=== PATIENT | female | born 1970 | race American Indian/Alaskan Native ===

== ENCOUNTER 2017-01-23 13:31 | Emergency (ER) | payer BC ==
[2017-01-23 13:58] VITALS: TEMP 99.9
--- NOTE | 2017-01-23 14:52 | ED PDOC ---
Arrival/HPI - General Chief Complaint: Lower Extremity Problem/Injury Time Seen by Provider: 01/23/17 14:25 Historian: Patient - History of Present Illness Narrative History of Present Illness (Text): 01/23/17 14:56 A 46 year old female, whose past medical history includes Hypertension, presents to the emergency department complaining of gradual onset of bilateral medial thigh pain since last night. Patient reports heavy lifting at work. Denies any systemic symptoms, symptoms of infectious foci. Patient has been in usual state of health for the past 2 weeks. Patient denies any chest pain, dyspnea on exertion, shortness of breath or any other complaints at this time. Time/Duration: Other (last night) Symptom Onset: Sudden Symptom Course: Unchanged Activities at Onset: Light Past Medical History - Provider Review Nursing Documentation Reviewed: Yes - Infectious Disease Hx of Infectious Diseases: None - Cardiac Hx Hypertension: Yes - Pulmonary Hx Respiratory Disorders: No - Neurological Hx Neurological Disorder: No - HEENT Hx HEENT Disorder: No - Renal Hx Renal Disorder: No - Endocrine/Metabolic Hx Endocrine Disorders: No - Hematological/Oncological Hx Blood Disorders: No - Integumentary Hx Dermatological Disorder: No - Musculoskeletal/Rheumatological Hx Musculoskeletal Disorders: No - Gastrointestinal Hx Gastrointestinal Disorders: No - Genitourinary/Gynecological Hx Genitourinary Disorders: No - Psychiatric Hx Psychophysiologic Disorder: No Hx Substance Use: No - Surgical History Hx Section: Yes - Anesthesia Hx Anesthesia: Yes Hx Anesthesia Reactions: No Hx Malignant Hyperthermia: No Family/Social History - Physician Review Nursing Documentation Reviewed: Yes Family/Social History: No Known Family HX Smoking Status: Never Smoked Hx Alcohol Use: No Hx Substance Use: No Allergies/Home Meds Allergies/Adverse Reactions: Allergies No Known Allergies Allergy (Verified 01/23/17 13:57) Home Medications: Home Meds Medication Instructions Recorded Confirmed Metoprolol Tartrate [Lopressor] 50 mg PO DAILY 12/07/14 01/23/17 Review of Systems - Physician Review All systems were reviewed & negative as marked: Yes - Review of Systems Respiratory: absent: SOB Cardiovascular: absent: Chest Pain, ZIMMER Musculoskeletal: Other (bilateral medial thigh pain) Physical Exam Vital Signs Reviewed: Yes Vital Signs Temp Pulse Resp BP Pulse Ox 01/23/17 13:52 99.9 F H 90 20 194/105 H 100 Temperature: Afebrile Blood Pressure: Hypertensive Pulse: Regular Respiratory Rate: Normal Appearance: Positive for: Well-Appearing, Non-Toxic, Comfortable Pain Distress: None Mental Status: Positive for: Alert and Oriented X 3 - Systems Exam Head: Present: Atraumatic, Normocephalic Pupils: Present: PERRL Extroacular Muscles: Present: EOMI Conjunctiva: Present: Normal Mouth: Present: Moist Mucous Membranes Neck: Present: Normal Range of Motion Respiratory/Chest: Present: Clear to Auscultation, Good Air Exchange. No: Respiratory Distress, Accessory Muscle Use Cardiovascular: Present: Regular Rate and Rhythm, Normal S1, S2. No: Murmurs Abdomen: Present: Normal Bowel Sounds. No: Tenderness, Distention, Peritoneal Signs Genitourinary/Pelvic Exam: Present: Other (7 month gradual size uterine fibroids ) Back: Present: Normal Inspection Upper Extremity: Present: Normal Inspection. No: Cyanosis, Edema Lower Extremity: Present: Other (b/l tenderness adductor tendons, 2+ pulses). No: Edema Neurological: Present: GCS=15, CN II-XII Intact, Speech Normal Skin: Present: Warm, Dry, Normal Color. No: Rashes Psychiatric: Present: Alert, Oriented x 3, Normal Insight, Normal Concentration Medical Decision Making ED Course and Treatment: 01/23/17 14:49 Impression: A 46 year old female with bilateral medial thigh pain. Plan: -- EKG -- labs -- US lower extremity -- US aorta, IVC, iliac -- Urinalysis -- Reassess and disposition Prior Visits: Notes and results from previous visits were reviewed. Patient last reported to the emergency department on 12/07/14 for evaluation of right knee swelling and pain. Progress Notes: 01/23/17 15:23 EKG: Ordered, reviewed, and independently interpreted the EKG. Rate : 80 BPM Rhythm : NSR Interpretation : No ischemic ST/T segments, no arrhythmogenic intervals 01/23/17 19:05 Deep vein studies (-) for any evbidence of dvt. Pt pain cloesly contiguous to the adductor tendons along their full length, and very reproduceable and is likely due to adducor tendinitis, ua (-) for infection or myolobunuria. Pt will be discharged on nsaids and muscel relaxants , advissed stretching exercises and pmd f/u prn. - Lab Interpretations Lab Results: 01/23/17 15:00 12/03/17 15:00 Lab Results 01/23/17 15:00: PT 13.3 H, INR 1.22 H, APTT 29.9 01/23/17 15:00: Sodium 139, Potassium 4.0, Chloride 104, Carbon Dioxide 28, Anion Gap 12, BUN 11, Creatinine 0.7, Est GFR ( Amer) > 60, Est GFR (Non- Af Amer) > 60, Random Glucose 94, Calcium 8.6, Total Bilirubin 0.6, AST 21, ALT 25, Alkaline Phosphatase 50, Total Protein 7.2, Albumin 3.9, Globulin 3.2, Albumin/Globulin Ratio 1.2 01/23/17 15:00: WBC 7.2, RBC 4.13, Hgb 8.1 L, Hct 29.2 L, MCV 70.7 L, MCH 19.6 L , MCHC 27.7 L, RDW 18.2 H, Plt Count 322, MPV 10.1, Gran % 82.5 H, Lymph % (Auto ) 10.2 L, [place] % (Auto) 5.5, Eos % (Auto) 1.5, Baso % (Auto) 0.3, Gran # 5.95, Lymph # 0.7 L, [place] # 0.4, Eos # 0.1, Baso # 0.02 01/23/17 14:45: Urine Color Yellow, Urine Appearance Sl cloudy, Urine pH 6.0, Ur Specific [place] 1.020, Urine Protein Trace H, Urine Glucose (UA) Negative, Urine Ketones Negative, Urine Blood Trace-lysed H, Urine Nitrate Negative, Urine Bilirubin Negative, Urine Urobilinogen 0.2, Ur Leukocyte Esterase Negative , Urine RBC 0 - 2, Urine WBC 0 - 2, Ur Epithelial Cells 1 - 3 I have reviewed the lab results: Yes - RAD Interpretation Radiology Orders: 01/23/17 14:40 DUPLEX LOWER EXTRM VEIN BILAT [US] Stat 01/23/17 14:43 AORTA, IVC, ILIAC DUPLEX [US] Stat - EKG Interpretation Interpreted by ED Physician: Yes Type: 12 lead EKG - Medication Orders Current Medication Orders: Cyclobenzaprine HCl (Flexeril) 10 mg PO STAT STA Stop: 01/23/17 19:00 Discontinued Medications Ibuprofen (Motrin Tab) 800 mg PO STAT STA Stop: 01/23/17 16:10 Last Admin: 01/23/17 16:22 Dose: 800 mg Metoprolol Tartrate (Lopressor) 50 mg PO STAT STA Stop: 01/23/17 16:50 - Scribe Statement The provider has reviewed the documentation as recorded by the Scribe Lenard Dang All medical record entries made by the Scribe were at my direction and personally dictated by me. I have reviewed the chart and agree that the record accurately reflects my personal performance of the history, physical exam, medical decision making, and the department course for this patient. I have also personally directed, reviewed, and agree with the discharge instructions and disposition. Disposition/Present on Arrival - Present on Arrival Any Indicators Present on Arrival: No History of DVT/PE: No History of Uncontrolled Diabetes: No Urinary Catheter: No History of Decub. Ulcer: No History Surgical Site Infection Following: None - Disposition Have Diagnosis and Disposition been Completed?: Yes Diagnosis: Adductor tendinitis Disposition: HOME/ ROUTINE Disposition Time: 19:08 Patient Plan: Discharge Condition: GOOD Discharge Instructions (ExitCare): Tendinitis (ED) Print Language: ALGERIAN Additional Instructions: Please practice doing gentle splits to stretch the addictor tendons after takingthe rpescribed medication, egntle massage after hot compresses can apso help. Please follow up with your cardiac surgeon doctor regarding elective hysterectomy as it may predispose you to heavy vaginal bleeding/ deep vein b;lood clots as well as possible malignant cancerous conversion. Return if symptoms worsen and are not steadily improving . Prescriptions: Cyclobenzaprine HCl 10 mg PO Q8 PRN #20 tablet PRN Reason: Muscle Spasm Ibuprofen [Motrin Tab] 600 mg PO Q6 PRN #50 tab PRN Reason: Pain, Mild (1-3) Referrals: [facility] Rubi Chaudhry, [Primary Care Provider] - Follow up with primary Forms: [employer] (Kinyarwanda)
[2017-01-23 15:00] LABS: URINE BILIRUBIN NEGATIVE (NEGATIVE); URINE BLOOD TRACE-LYSED (NEGATIVE); URINE GLUCOSE (UA) NEGATIVE (NEGATIVE); URINE KETONE NEGATIVE (NEGATIVE); URINE LEUKOCYTE ESTERASE NEGATIVE Leu/uL (NEGATIVE); URINE PROTEIN TRACE mg/dL (<30 mg/dL); URINE UROBILINOGEN 0.2 E.U./dL (<1 E.U./dL)
[2017-01-23 15:01] LABS: URINE APPEARANCE SL CLOUDY (CLEAR); URINE COLOR YELLOW (YELLOW)
[2017-01-23 15:04] LABS: URINE RBC 0 - 2 /hpf (0-2)
[2017-01-23 15:05] LABS: URINE WBC 0 - 2 /hpf (0-6)
[2017-01-23 15:24] LABS: BASO # 0.02 K/mm3 (0.0-2.0); BASO % 0.3 % (0.0-3.0); EOS # 0.1 (0.0-0.7); EOS % 1.5 % (1.5-5.0); GRAN # 5.95 (1.4-6.5); GRAN % 82.5 % (50.0-68.0); HEMATOCRIT 29.2 % (36.0-48.0); LYMPH # 0.7 (1.2-3.4); LYMPH % 10.2 % (22.0-35.0); MEAN CELL VOLUME 70.7 fl (80.0-105.0); MEAN CORPUSCULAR HEMOGLOBIN 19.6 pg (25.0-35.0); MEAN CORPUSCULAR HGB CONC 27.7 g/dl (31.0-37.0); MEAN PLATELET VOLUME 10.1 fl (7.0-11.0); MONO # 0.4 (0.1-0.6); MONO % 5.5 % (1.0-6.0); RED CELL DISTRIBUTION WIDTH 18.2 % (11.5-14.5); WHITE BLOOD COUNT 7.2 10^3/ul (4.5-11.0)
[2017-01-23 15:34] LABS: INR 1.22 (0.93-1.08); PARTIAL THROMBOPLASTIN TIME 29.9 Seconds (25.1-36.5)
[2017-01-23 15:44] LABS: ALB/GLOB RATIO 1.2 (1.1-1.8); ALKALINE PHOSPHATASE 50 U/L (38-126); ALT/SGPT 25 U/L (7-56); AST/SGOT 21 U/L (14-36); BILIRUBIN,TOTAL 0.6 mg/dL (0.2-1.3); BLOOD UREA NITROGEN 11 mg/dL (7-21); CALCIUM 8.6 mg/dL (8.4-10.5); CARBON DIOXIDE 28 mmol/L (21-33); CHLORIDE 104 mmol/L (98-107); GFR AFRICAN-AMERICAN > 60; GLUCOSE,RANDOM 94 mg/dL (70-110); SODIUM 139 mmol/L (132-148); TOTAL PROTEIN 7.2 g/dL (5.8-8.3)
[2017-01-23] MEDS ORDERED: Oxycodone/Acetaminophen 5/325 mg Tab PO STA (19:04)
[2017-01-23 20:20] VITALS: BP 162/99; PULSE 82; RESP 16
[2017-01-23 20:28] VITALS: O2SAT 99
--- NOTE | 2017-01-24 09:14 | US ---
HISTORY: Leg pain and swelling. Evaluate for DVT PHYSICIAN(S): Ye Bañuelos MD. TECHNIQUE: Duplex sonography and color-flow Doppler with graded compression were used to evaluate the deep venous systems of both lower extremities. FINDINGS: The visualized deep venous systems of both lower extremities are sonographically normal and compressible. Normal wave forms and augmentation are seen. There is no sonographic evidence for deep venous thrombosis in the visualized segments of both lower extremities. IMPRESSION: No sonographic evidence for deep venous thrombosis in the visualized segments of both lower extremities.
--- NOTE | 2017-01-24 09:14 | US ---
PROCEDURE: 1. Duplex ultrasound of the abdominal aorta. HISTORY: Abdominal aortic aneurysm. PHYSICIAN(S): Ye Bañuelos MD. FINDINGS: The exam is extremely limited due to bowel gas and enlarged fibroid. Only the proximal abdominal aorta is visualized. There is no sonographic evidence for abdominal aortic aneurysm in the visualized segments of the proximal abdominal aorta. The mid to distal abdominal aorta are not adequately visualized. IMPRESSION: 1. No sonographic evidence of abdominal aortic aneurysm. 2. Only limited segments of the proximal abdominal aorta were adequately visualized. Very limited study
--- NOTE | 2017-01-24 17:49 | CARD ---
APPROVED REPORT EKG Measurement Heart [id number] <Conclusion> Normal sinus rhythm Minimal voltage criteria for LVH, may be normal variant Cannot rule out Anterior infarct, age undetermined Abnormal ECG
== END 2017-01-23 20:20 | disposition home or self-care (01) ==
LOC: ED 13:31
DX: M76.892 Other specified enthesopathies of left lower limb, excluding foot (principal); M76.891 Other specified enthesopathies of right lower limb, excluding foot; I10 Essential (primary) hypertension

== ENCOUNTER 2017-01-26 13:52 | Inpatient (IN) | payer BC ==
[2017-01-26 14:14] VITALS: BMI 29.8
[2017-01-26] MEDS ORDERED: Sodium Chloride 0.9% 1,000 ML IV STA (14:36)
--- NOTE | 2017-01-26 14:41 | ED PDOC ---
Arrival/HPI - General Chief Complaint: Lower Extremity Problem/Injury Time Seen by Provider: 01/26/17 14:08 Historian: Patient - History of Present Illness Narrative History of Present Illness (Text): 01/26/17 14:25 A 46 year old female, whose past medical history includes hypertension, is brought in by EMS and presents to the emergency department complaining of difficulty ambulating. Patient reports experiencing upper leg pain. Patient denies any trauma, fever, or any other complaints. PMD: Dr. Cuate Craft Past Medical History - Provider Review Nursing Documentation Reviewed: Yes - Infectious Disease Hx of Infectious Diseases: None - Cardiac Hx Cardiac Disorders: Yes Hx Hypertension: Yes - Pulmonary Hx Respiratory Disorders: No - Neurological Hx Neurological Disorder: No - HEENT Hx HEENT Disorder: No - Renal Hx Renal Disorder: No - Endocrine/Metabolic Hx Endocrine Disorders: No - Hematological/Oncological Hx Blood Disorders: No - Integumentary Hx Dermatological Disorder: No - Musculoskeletal/Rheumatological Hx Musculoskeletal Disorders: No - Gastrointestinal Hx Gastrointestinal Disorders: No - Genitourinary/Gynecological Hx Genitourinary Disorders: No - Psychiatric Hx Psychophysiologic Disorder: No Hx Substance Use: No - Surgical History Hx Section: Yes - Anesthesia Hx Anesthesia: Yes Hx Anesthesia Reactions: No Hx Malignant Hyperthermia: No Family/Social History - Physician Review Nursing Documentation Reviewed: Yes Family/Social History: No Known Family HX Smoking Status: Never Smoked Hx Alcohol Use: No Hx Substance Use: No Allergies/Home Meds Allergies/Adverse Reactions: Allergies No Known Allergies Allergy (Verified 01/26/17 14:14) Review of Systems - Physician Review All systems were reviewed & negative as marked: Yes - Review of Systems Constitutional: Other (difficulty ambulating due to pain; no trauma). absent: Fevers Musculoskeletal: Other (upper leg pain) Physical Exam Vital Signs Reviewed: Yes Vital Signs Temp Pulse Resp BP Pulse Ox 01/26/17 20:38 78 18 150/93 H 100 01/26/17 17:06 98.6 F 01/26/17 16:27 99.7 F H 92 H 18 148/81 100 01/26/17 16:11 98.6 F 01/26/17 15:11 100.1 F H 01/26/17 14:13 100.7 F H 102 H 18 152/95 H 100 Temperature: Afebrile Blood Pressure: Normal Pulse: Regular Respiratory Rate: Normal Appearance: Positive for: Well-Appearing Pain Distress: None Mental Status: Positive for: Alert and Oriented X 3 - Systems Exam Head: Present: Atraumatic, Normocephalic Pupils: Present: PERRL Extroacular Muscles: Present: EOMI Conjunctiva: Present: Normal Mouth: Present: Moist Mucous Membranes Neck: Present: Normal Range of Motion Respiratory/Chest: Present: Clear to Auscultation, Good Air Exchange. No: Respiratory Distress, Accessory Muscle Use Cardiovascular: Present: Murmurs (systolic ejection murmur) Abdomen: Present: Normal Bowel Sounds. No: Tenderness, Distention, Peritoneal Signs Back: Present: Normal Inspection Upper Extremity: Present: Normal Inspection. No: Cyanosis, Edema Lower Extremity: Present: Tenderness (upper leg) Neurological: Present: GCS=15, CN II-XII Intact, Speech Normal Skin: Present: Warm, Dry, Normal Color. No: Rashes Psychiatric: Present: Alert, Oriented x 3, Normal Insight, Normal Concentration Medical Decision Making ED Course and Treatment: 01/26/17 14:30 Impression: 46 year old female with difficulty ambulating due to upper leg pain. Physical exam shows systolic ejection murmur and upper leg tenderness. Plan: -- EKG -- Labs -- Blood Culture -- Urinalysis -- Serology -- Reassess and disposition Prior Visits: Notes and results from previous visits were reviewed. Patient was last seen in the emergency department on 01/23/2017 for gradual onset of bilateral medial thigh pain. Patient was d/c home. Progress Notes: 01/26/17 18:54 dvt study neg as per tech. - Lab Interpretations Microbiology Results: Microbiology Results 01/26/17 15:25 Blood S.aureus & Coag-Neg Staph PNA FISH - Final 01/26/17 15:25 Blood Blood Culture - Final Streptococcus Sangius I 01/26/17 15:25 Blood Gram Stain - Final 01/26/17 14:55 Blood Blood Culture - Preliminary NO GROWTH AFTER 4 DAYS Lab Results: 01/26/17 14:48 01/26/17 14:48 Lab Results 01/26/17 15:21: D-Dimer, Quantitative 1087 H 01/26/17 15:00: PT 13.9 H, INR 1.27 H, APTT 28.5 01/26/17 14:48: pO2 51, VBG pH 7.44 H, VBG pCO2 36.0 L, VBG HCO3 24.5, VBG Total CO2 25.6, VBG O2 Sat (Calc) 89.7 H, VBG Base Excess 0.6, VBG Potassium 3.3 L, Sodium 138.0, Chloride 105.0, Glucose 96, Lactate 1.0, FiO2 21.0, Venous Blood Potassium 3.3 L 01/26/17 14:48: Influenza Typ A,B (EIA) Negative for flu a/b 01/26/17 14:48: Sodium 139, Chloride 103, Potassium 3.4 L, Carbon Dioxide 24, Anion Gap 15, BUN 13, Creatinine 0.8, Est GFR ( Amer) > 60, Est GFR (Non- Af Amer) > 60, Random Glucose 99, Calcium 9.2, Magnesium 2.2, Total Bilirubin 0.7, AST 28, ALT 25, Alkaline Phosphatase 74, Lactate Dehydrogenase 610, Total Creatine Kinase 51, Troponin I < 0.01, NT-Pro-B Natriuret Pep 551 H, Total Protein 7.7, Albumin 4.1, Globulin 3.7, Albumin/Globulin Ratio 1.1 01/26/17 14:48: WBC 7.4, RBC 4.25, Hgb 8.5 L, Hct 29.6 L, MCV 69.6 L, MCH 20.0 L , MCHC 28.7 L, RDW 18.1 H, Plt Count 296, MPV 9.7, Gran % 89.8 H, Lymph % (Auto ) 5.6 L, [place] % (Auto) 4.5, Eos % (Auto) 0.1 L, Baso % (Auto) 0.0, Gran # 6.62 H , Lymph # 0.4 L, [place] # 0.3, Eos # 0.0, Baso # 0.00, ESR 45 H 01/26/17 14:26: Urine Color Yellow, Urine Appearance Sl cloudy, Urine pH 5.5, Ur Specific [place] 1.025, Urine Protein 100 H, Urine Glucose (UA) Negative, Urine Ketones Negative, Urine Blood Negative, Urine Nitrate Negative, Urine Bilirubin Negative, Urine Urobilinogen 0.2, Ur Leukocyte Esterase Negative, Urine RBC Negative, Urine WBC 5 - 10, Ur Epithelial Cells 6 - 8, Urine Bacteria Mod, WBC Casts 2 - 5 H, Urine HCG, Qual Negative - RAD Interpretation Radiology Orders: 01/26/17 14:44 PELVIS ONE VIEW [RAD] Stat 01/26/17 15:51 CXR [CHEST PORTABLE] [RAD] Stat 01/26/17 17:03 DUPLEX LOWER EXTRM VEIN BILAT [US] Stat 01/26/17 18:15 ANGIO CHEST PE PROTOCOL [CT] Stat 01/26/17 18:16 ABD & PELVIS IV CONTRAST ONLY [CT] Stat - Medication Orders Current Medication Orders: Acetaminophen (Tylenol 325mg Tab) 650 mg PO Q6H PRN PRN Reason: FOR TEMP>=99.5F Acetaminophen (Tylenol 650 Mg Supp) 650 mg RC Q4H PRN PRN Reason: FOR TEMP>=99.5F Amlodipine Besylate (Norvasc) 10 mg PO DAILY [facility]ERARDO Last Admin: 01/31/17 09:54 Dose: 10 mg Clonidine HCl (Catapres) 0.1 mg PO PRN PRN PRN Reason: Diastolic blood pressure Last Admin: 01/30/17 16:25 Dose: 0.1 mg MAR Pulse and Blood Pressure Document 01/30/17 16:25 LMN (Rec: 01/30/17 16:26 LMN [id number]) Pulse Pulse Rate (60-90) 89 Blood Pressure Blood Pressure (100/60-150/90) 179/121 Hydralazine HCl (Apresoline) 10 mg PO Q4H PRN PRN Reason: Diastolic blood pressure Last Admin: 01/31/17 09:54 Dose: 10 mg MAR Pulse and Blood Pressure Document 01/31/17 09:54 LMN (Rec: 01/31/17 09:55 LMN [id number]) Pulse Pulse Rate (60-90) 88 Blood Pressure Blood Pressure (100/60-150/90) 152/92 Hydromorphone HCl (Dilaudid) 0.5 mg IVP Q4H PRN PRN Reason: Pain, moderate (4-7) Iron Sucrose 200 mg/ Sodium (Chloride) 110 mls @ 110 mls/hr IVPB DAILY [facility]ERARDO Stop: 02/01/17 22:01 Last Admin: 01/30/17 11:00 Dose: 110 mls/hr eMAR Start Stop Document 01/30/17 11:00 LMN (Rec: 01/30/17 11:00 [place]N [id number][place] Intravenous Solution Start Date 01/30/17 Start Time 11:00 Ceftriaxone Sodium (Rocephin 1 Gram Ivpb (D5w)) 1 gm in 100 mls @ 100 mls/hr IVPB DAILY [facility] PRN Reason: Protocol Last Admin: 01/31/17 09:33 Dose: 100 mls/hr eMAR Start Stop Document 01/31/17 09:33 LMN (Rec: 01/31/17 09:33 LMN [id number]) Intravenous Solution Start Date 01/31/17 Start Time 09:33 Metoprolol Tartrate (Lopressor) 50 mg PO Q12H [facility] Last Admin: 01/31/17 05:39 Dose: 50 mg MAR Pulse and Blood Pressure Document 01/31/17 05:39 MAD (Rec: 01/31/17 05:40 MAD [id number]) Pulse Pulse Rate (60-90) 86 Blood Pressure Blood Pressure (100/60-150/90) 172/106 Metronidazole (Flagyl) 500 mg PO Q8 [facility] Last Admin: 01/31/17 07:31 Dose: Not Given Non-Admin Reason: Patient Refused Pantoprazole Sodium (Protonix Ec Tab) 40 mg PO 0600,1600 [facility] Last Admin: 01/31/17 07:32 Dose: Not Given Non-Admin Reason: Patient Refused Spironolactone (Aldactone) 25 mg PO BID [facility] Last Admin: 01/31/17 09:31 Dose: 25 mg Tramadol HCl (Ultram) 50 mg PO Q8 [facility] Last Admin: 01/31/17 05:34 Dose: 50 mg MAR Pain Assessment Document 01/31/17 05:34 MAD (Rec: 01/31/17 05:36 MAD [id number][place] Pain Reassessment Is this a pain reassessment? Yes Sleep Is patient sleeping during reassessment? No Presence of Pain Presence of Pain Yes Pain Scale Used Pain Scale Used Numeric Location Upper or Lower Upper Pain Location Body Site Leg Description Intensity of Pain at present 6 Pain Behavior Restlessness Alleviating Factors/Management Medication Techniques Alleviating Factors Medication Effectiveness of Techniques well controlled Pain not relieved and LIP/MD was No notified Valsartan (Diovan) 320 mg PO DAILY [facility] Last Admin: 01/31/17 09:31 Dose: 320 mg Discontinued Medications Acetaminophen (Tylenol 325mg Tab) 975 mg PO STAT STA Stop: 01/26/17 14:53 Last Admin: 01/26/17 15:11 Dose: 975 mg MAR Pain/Vitals Document 01/26/17 15:11 SE (Rec: 01/26/17 15:11 SE [id number]) Pain Reassessment Is This A Pain ReAssessment? No Sleep Is patient sleeping during reassessment? No Presence of Pain Presence of Pain No Vitals Temperature (97.6 F-99.6 F) 100.1 F Temperature Source Oral Re-Assess: MAR Pain/Vitals Document 01/26/17 16:11 RD (Rec: 01/26/17 17:07 RD [id number]) Pain Reassessment Is This A Pain ReAssessment? No Vitals Temperature (97.6 F-99.6 F) 98.6 F Temperature Source Oral Amlodipine Besylate (Norvasc) 5 mg PO DAILY [facility]ERARDO Last Admin: 01/29/17 12:40 Dose: 5 mg [facility] Pulse and Blood Pressure Document 01/29/17 12:40 TX (Rec: 01/29/17 12:40 [place] [id number] Pulse Pulse Rate (60-90) 79 Blood Pressure Blood Pressure (100/60-150/90) 190/109 Diphenhydramine HCl (Benadryl) 50 mg IM ONCE ONE Stop: 01/28/17 14:01 Last Admin: 01/28/17 16:21 Dose: Not Given Non-Admin Reason: Patient Refused Hydralazine HCl (Apresoline) 5 mg IVP STAT STA Stop: 01/27/17 13:02 Last Admin: 01/27/17 13:08 Dose: 5 mg IVP Administration Document 01/27/17 13:08 [facility] (Rec: 01/27/17 13:09 [facility] [id number]) Charges for Administration # of IVP Administrations 1 MAR Pulse and Blood Pressure Document 01/27/17 13:08 BIR (Rec: 01/27/17 13:09 [facility] [id number]) Pulse Pulse Rate (60-90) 76 Blood Pressure Blood Pressure (100/60-150/90) 182/109 Hydralazine HCl (Apresoline) 10 mg IVP Q6 PRN PRN Reason: Systolic Blood Pressure Last Admin: 01/28/17 02:21 Dose: 10 mg IVP Administration Document 01/28/17 02:21 (Rec: 01/28/17 02:22 [id number] Charges for Administration # of IVP Administrations 1 MAR Pulse and Blood Pressure Document 01/28/17 02:21 VM (Rec: 01/28/17 02:22 [id number]) Pulse Pulse Rate (60-90) 81 Blood Pressure Blood Pressure (100/60-150/90) 176/106 Hydralazine HCl (Apresoline) 10 mg IVP Q6 PRN PRN Reason: FOR SBP>=170&/ORDBP>=100 MM[facility] Last Admin: 01/29/17 05:28 Dose: 10 mg IVP Administration Document 01/29/17 05:28 CDL (Rec: 01/29/17 05:29 [id number]) Charges for Administration # of IVP Administrations 1 MAR Pulse and Blood Pressure Document 01/29/17 05:28 CDL (Rec: 01/29/17 05:29 CDL [id number]) Pulse Pulse Rate (60-90) 91 Blood Pressure Blood Pressure (100/60-150/90) 196/110 Hydralazine HCl (Apresoline) 10 mg IVP ONCE ONE Stop: 01/28/17 15:01 Last Admin: 01/28/17 15:05 Dose: 10 mg IVP Administration Document 01/28/17 15:05 [facility] (Rec: 01/28/17 16:48 [id number] Charges for Administration # of IVP Administrations 1 MAR Pulse and Blood Pressure Document 01/28/17 15:05 [facility] (Rec: 01/28/17 16:48 [id number] Pulse Pulse Rate (60-90) 76 Blood Pressure Blood Pressure (100/60-150/90) 188/108 Hydromorphone HCl (Dilaudid) 1 mg IVP ONCE ONE Stop: 01/28/17 08:50 Last Admin: 01/28/17 11:17 Dose: Not Given Non-Admin Reason: Patient Refused Sodium Chloride (Sodium Chloride 0.9%) 1,000 mls @ 999 mls/hr IV .Q1H1M STA Stop: 01/26/17 15:36 Last Admin: 01/26/17 15:11 Dose: 999 mls/hr eMAR Start Stop Document 01/26/17 15:11 SE (Rec: 01/26/17 15:11 SE [id number]) Intravenous Solution Start Date 01/26/17 Start Time 15:11 Ceftriaxone Sodium (Rocephin 2 Gm Ivpb) 2 gm in 100 mls @ 100 mls/hr IVPB STAT STA PRN Reason: Protocol Stop: 01/26/17 17:55 Last Admin: 01/26/17 18:05 Dose: 100 mls/hr eMAR Start Stop Document 01/26/17 18:05 RD (Rec: 01/26/17 18:05 RD [id number]) Intravenous Solution Start Date 01/26/17 Start Time 18:05 End Date 01/26/17 End time 19:05 Total Infusion Time 60 Vancomycin HCl (Vancomycin 1gm) 1 gm in 250 mls @ 167 mls/hr IVPB STAT STA PRN Reason: Protocol Stop: 01/26/17 18:25 Last Admin: 01/26/17 19:46 Dose: 167 mls/hr eMAR Start Stop Document 01/26/17 19:46 RD (Rec: 01/26/17 19:46 RD [id number]) Intravenous Solution Start Date 01/26/17 Start Time 19:46 End Date 01/26/17 End time 21:16 Total Infusion Time 90 Metronidazole (Flagyl) 500 mg in 100 mls @ 100 mls/hr IVPB Q8 [facility] PRN Reason: Protocol Last Admin: 01/28/17 06:00 Dose: 100 mls/hr eMAR Start Stop Document 01/28/17 06:00 VM (Rec: 01/28/17 07:59 VM [id number]) Intravenous Solution Start Date 01/28/17 Start Time 07:59 End Date 01/28/17 End time 08:59 Total Infusion Time 60 Piperacillin Sod/Tazobactam Sod (Zosyn 3.375 In Ns 100ml) 100 mls @ 200 mls/hr IVPB Q6 [facility] PRN Reason: Protocol Stop: 02/02/17 18:01 Last Admin: 01/30/17 14:42 Dose: 200 mls/hr eMAR Start Stop Document 01/30/17 14:42 LMN (Rec: 01/30/17 14:42 LMN [id number]) Intravenous Solution Start Date 01/30/17 Start Time 14:42 Sodium Chloride (Sodium Chloride 0.9%) 1,000 mls @ 100 mls/hr IV .Q10H [facility] Last Admin: 01/26/17 19:46 Dose: 100 mls/hr eMAR Start Stop Document 01/26/17 19:46 RD (Rec: 01/26/17 19:46 RD [id number]) Intravenous Solution Start Date 01/26/17 Start Time 19:46 Sodium Chloride (Sodium Chloride 0.9%) 1,000 mls @ 60 mls/hr IV .[id number] [facility] Last Admin: 01/27/17 09:12 Dose: 60 mls/hr eMAR Start Stop Document 01/27/17 09:12 BIR (Rec: 01/27/17 09:13 BIR [id number]) Intravenous Solution Start Date 01/27/17 Start Time 08:00 Potassium Chloride (Potassium Chloride 20 Meq/100 Ml) 20 meq in 100 mls @ 50 mls/hr IVPB Q2H [facility] Stop: 01/27/17 12:59 Last Admin: 01/27/17 12:00 Dose: 50 mls/hr eMAR Start Stop Document 01/27/17 12:00 BIR (Rec: 01/27/17 13:00 [facility] [id number]) Intravenous Solution Start Date 01/27/17 Start Time 12:00 End Date 01/27/17 End time 13:00 Total Infusion Time 60 Vancomycin HCl (Vancomycin 1gm) 1 gm in 250 mls @ 167 mls/hr IVPB Q12H [facility] PRN Reason: Protocol Last Admin: 01/30/17 12:58 Dose: 167 mls/hr eMAR Start Stop Document 01/30/17 12:58 LMN (Rec: 01/30/17 12:58 LMN [id number]) Intravenous Solution Start Date 01/30/17 Start Time 13:00 Lorazepam (Ativan) 1 mg IM ONCE ONE PRN Reason: Protocol Stop: 01/28/17 14:01 Last Admin: 01/28/17 16:21 Dose: Not Given Non-Admin Reason: Patient Refused Losartan Potassium (Cozaar) 50 mg PO DAILY [facility]ARDO Last Admin: 01/27/17 09:07 Dose: 50 mg MAR Pulse and Blood Pressure Document 01/27/17 09:07 BIR (Rec: 01/27/17 09:12 BIR [id number]) Pulse Pulse Rate (60-90) 83 Blood Pressure Blood Pressure (100/60-150/90) 174/95 Losartan Potassium (Cozaar) 100 mg PO DAILY [facility] Last Admin: 01/29/17 09:17 Dose: Metoprolol Tartrate (Lopressor) 50 mg PO ONCE ONE Stop: 01/27/17 06:01 Last Admin: 01/27/17 06:06 Dose: 50 mg MAR Pulse and Blood Pressure Document 01/27/17 06:06 SRE (Rec: 01/27/17 06:06 SRE [id number]) Pulse Pulse Rate (60-90) 80 Blood Pressure Blood Pressure (100/60-150/90) 180/100 Metoprolol Tartrate (Lopressor) 50 mg PO DAILY [facility] Last Admin: 01/30/17 10:50 Dose: 50 mg Pneumococcal Polyvalent Vaccine (Pneumovax 23 Vaccine) 0.5 ml IM .ONCE ONE Stop: 01/26/17 22:17 Last Admin: 01/27/17 02:19 Dose: MAR Immunization Data Document 01/27/17 02:19 SRE (Rec: 01/27/17 02:19 [id number]) Immunization Data Vaccine Information Sheet Given No Immunization Registry Document 01/27/17 02:19 SRE (Rec: 01/27/17 02:19 SRE [id number]) Immunization Registry Consent Date 01/23/17 Potassium Chloride (K-Dur 20 Meq Er Tab) 20 meq PO STAT STA Stop: 01/26/17 18:35 Last Admin: 01/26/17 19:51 Dose: 20 meq Potassium Chloride (K-Dur 20 Meq Er Tab) 20 meq PO BRK [facility]ERARDO Last Admin: 01/30/17 08:11 Dose: 20 meq Potassium Chloride (K-Dur 20 Meq Er Tab) 40 meq PO ONCE ONE Stop: 01/29/17 08:56 Last Admin: 01/29/17 09:27 Dose: 40 meq - Scribe Statement The provider has reviewed the documentation as recorded by the Brandyibmigdalia Hdz Provider Scribe Attestation: All medical record entries made by the Scribe were at my direction and personally dictated by me. I have reviewed the chart and agree that the record accurately reflects my personal performance of the history, physical exam, medical decision making, and the department course for this patient. I have also personally directed, reviewed, and agree with the discharge instructions and disposition. Disposition/Present on Arrival - Present on Arrival Any Indicators Present on Arrival: No History of DVT/PE: No History of Uncontrolled Diabetes: No Urinary Catheter: No History of Decub. Ulcer: No History Surgical Site Infection Following: None - Disposition Have Diagnosis and Disposition been Completed?: Yes Diagnosis: Leg pain, Sepsis, Anemia Disposition: HOSPITALIZED Disposition Time: 04:00 Patient Problems: Current Active Problems Problem Status Onset Anemia Acute Cancer antigen 125 (CA 125) elevation Acute Splenic lesion Acute Condition: STABLE
[2017-01-26 14:56] LABS: EOS % 0.1 % (1.5-5.0); GRAN # 6.62 (1.4-6.5); GRAN % 89.8 % (50.0-68.0); HEMATOCRIT 29.6 % (36.0-48.0); LYMPH # 0.4 (1.2-3.4); LYMPH % 5.6 % (22.0-35.0); MEAN CELL VOLUME 69.6 fl (80.0-105.0); MEAN CORPUSCULAR HGB CONC 28.7 g/dl (31.0-37.0); MEAN PLATELET VOLUME 9.7 fl (7.0-11.0); MONO # 0.3 (0.1-0.6); MONO % 4.5 % (1.0-6.0); RED CELL DISTRIBUTION WIDTH 18.1 % (11.5-14.5); WHITE BLOOD COUNT 7.4 10^3/ul (4.5-11.0)
[2017-01-26 14:56] LABS: PH,URINE 5.5 (4.7-8.0); URINE BILIRUBIN NEGATIVE (NEGATIVE); URINE BLOOD NEGATIVE (NEGATIVE); URINE GLUCOSE (UA) NEGATIVE (NEGATIVE); URINE KETONE NEGATIVE (NEGATIVE); URINE LEUKOCYTE ESTERASE NEGATIVE Leu/uL (NEGATIVE); URINE PROTEIN 100 mg/dL (<30 mg/dL); URINE UROBILINOGEN 0.2 E.U./dL (<1 E.U./dL)
[2017-01-26 14:57] LABS: URINE APPEARANCE SL CLOUDY (CLEAR); URINE COLOR YELLOW (YELLOW)
[2017-01-26 15:02] LABS: VENOUS BLOOD GAS BASE EXCESS 0.6 mmol/L (0.0-2.0); VENOUS BLOOD PH 7.44 (7.32-7.43)
[2017-01-26 15:30] LABS: URINE BACTERIA MOD (NEG); URINE RBC NEGATIVE /hpf (0-2)
[2017-01-26 15:32] LABS: ALT/SGPT 25 U/L (7-56)
[2017-01-26 15:33] LABS: TROPONIN I < 0.01 ng/mL
[2017-01-26 15:43] LABS: INR 1.27 (0.93-1.08); PARTIAL THROMBOPLASTIN TIME 28.5 Seconds (25.1-36.5)
[2017-01-26 16:40] LABS: ALB/GLOB RATIO 1.1 (1.1-1.8); ALKALINE PHOSPHATASE 74 U/L (38-126); AST/SGOT 28 U/L (14-36); BILIRUBIN,TOTAL 0.7 mg/dL (0.2-1.3); BLOOD UREA NITROGEN 13 mg/dL (7-21); CALCIUM 9.2 mg/dL (8.4-10.5); CARBON DIOXIDE 24 mmol/L (21-33); CHLORIDE 103 mmol/L (98-107); GFR AFRICAN-AMERICAN > 60; GLUCOSE,RANDOM 99 mg/dL (70-110); MAGNESIUM 2.2 mg/dL (1.7-2.2); POTASSIUM 3.4 mmol/L (3.6-5.0); SODIUM 139 mmol/L (132-148); TOTAL PROTEIN 7.7 g/dL (5.8-8.3)
[2017-01-26] MEDS ORDERED: Vancomycin 1gm in NS 250ml 1 GM/250 ML BAG IVPB STA (16:56)
[2017-01-26] MEDS ORDERED: cefTRIAXone 2 GM IN NS 2 GM/100 ML BAG IVPB STA (16:56)
[2017-01-26] MEDS ORDERED: Sodium Chloride 0.9% 1,000 ML IV SCH (18:00)
--- NOTE | 2017-01-26 18:14 | RAD ---
HISTORY: Fever COMPARISON: No prior. FINDINGS: LUNGS: The lungs are well inflated. There is mild pulmonary venous congestion. No focal consolidation. PLEURA: No significant pleural effusion identified, no pneumothorax apparent. CARDIOVASCULAR: There is moderate cardiomegaly and prominent central vasculature. OSSEOUS STRUCTURES: No significant abnormalities. VISUALIZED UPPER ABDOMEN: Normal. OTHER FINDINGS: None. IMPRESSION: No active pulmonary disease. Moderate cardiomegaly and mild pulmonary venous congestion.
--- NOTE | 2017-01-26 18:16 | RAD ---
PROCEDURE: Radiographs of the pelvis. HISTORY: Pain COMPARISON: None. FINDINGS: BONES: The pelvic ring is intact. There is no acute displaced fracture or bone destruction. JOINTS: The joint spaces are preserved. OTHER FINDINGS: None. IMPRESSION: No acute fracture or dislocation.
[2017-01-26] MEDS ORDERED: Potassium Chloride 20 mEq ER Tab PO STA (18:34)
--- NOTE | 2017-01-26 19:15 | CP.PCM.HP ---
History of Present Illness - History of Present Illness History of Present Illness: H/P for Dr. Conti - CAROLYN WARNER, PGY-1 CC: B/l leg pain HPI: 46 F with PMHx of fibroids and HTN presents with difficulty ambulating and inner thigh pain. Pt states this has been going on for about a week and denies any other associated symptoms. In the ER, the patient was found to be febrile, but does not have any other symptoms at this time. Pt was recently seen in the ER for b/l LE pain, at which time an u/s was done and r/o dvt. No further complaints at this time. Pt denies f/ch/cp/sob/n/v/d/dysuria/frequency/urgency/hematuria/hematochezia/ hematemesis PSHx: Pt denies PMHx: Fibroids, HTN All: NKDA SocHx: Occasional etoh, denies tobacco, denies illicits FamHx: CVA, Fibroids Meds: See APR ROS: Const'l: pt denies fever, chills, generalized weakness ENT: pt denies dysphagia, otalgia, hearing deficit, rhinorrhea Eyes: pt denies sudden loss of vision, diplopia, blurred vision MSK: pt denies muscle stiffness, joint pain, extremity cramping Cardio: pt denies sob, heart murmur, cp Pulm: pt denies cough, hemoptysis, wheeze GI: pt denies loss of appetite, abdominal pain, constipation, melena, n/v/d : pt denies burning on urination, urinary frequency, hematuria, urinary urgency Neuro: pt denies paresis, paresthesia, dizziness, vides, numbness, tingling Derm: pt denies skin changes, lesions, nail changes Endo: pt denies intolerance to heat/cold, diaphoresis, night sweats, polydipsia Psych: pt denies anxiety, depression, mood changes Present on Admission - Present on Admission Any Indicators Present on Admission: No Past Patient History - Infectious Disease Hx of Infectious Diseases: None - Past Social History Smoking Status: Never Smoked - CARDIAC Hx Cardiac Disorders: Yes Hx Hypertension: Yes - PULMONARY Hx Respiratory Disorders: No - NEUROLOGICAL Hx Neurological Disorder: No - HEENT Hx HEENT Problems: No - RENAL Hx Chronic Kidney Disease: No - ENDOCRINE/METABOLIC Hx Endocrine Disorders: No - HEMATOLOGICAL/ONCOLOGICAL Hx Blood Disorders: No - INTEGUMENTARY Hx Dermatological Problems: No - MUSCULOSKELETAL/RHEUMATOLOGICAL Hx Musculoskeletal Disorders: No - GASTROINTESTINAL Hx Gastrointestinal Disorders: No - GENITOURINARY/GYNECOLOGICAL Hx Genitourinary Disorders: No - PSYCHIATRIC Hx Psychophysiologic Disorder: No Hx Substance Use: No - SURGICAL HISTORY Hx Section: Yes - ANESTHESIA Hx Anesthesia: Yes Hx Anesthesia Reactions: No Hx Malignant Hyperthermia: No Meds Allergies/Adverse Reactions: Allergies Allergy/AdvReac Type Severity Reaction Status Date / Time No Known Allergies Allergy Verified 01/26/17 14:14 Physical Exam - Additional Findings Additional findings: Phys Exam: VS as below Const'l: a&o x 4, nad Head/Neck: neck supple, no jvd, trachea midline, carotid midline, no cervical /head mass Eyes: dileep, nonicteric sclera, eom intact ENT: auditory acuity grossly intact, throat not congested, no nasal deformity Cardio: rrr, no m/r/g, no carotid bruit, nml s1, s2 Pulm: no accessory muscle use, equal nml breath sounds bilaterally, ctab Abd: +pt has a distended and firm belly 2/2 fibroids - not a surgical abdomen ! non-tender, nbs x 4 q, no palpable masses Derm: no rashes, no ulcers, no lesions Extr: no edema, no cyanosis, no calf tenderness, no lesions, no varicosities Neuro: cn II-XII grossly intact, ue and le 5/5 muscle strength bilaterally, no los ue, le bilaterally and core Results - Vital Signs Recent Vital Signs: Last Vital Signs Temp 98.6 F 01/26/17 17:06 Pulse 92 H 01/26/17 16:27 Resp 18 01/26/17 16:27 BP 148/81 01/26/17 16:27 Pulse Ox 100 01/26/17 16:27 - Labs Result Diagrams: 01/26/17 14:48 01/26/17 14:48 Labs: Laboratory Results - last 24 hr 01/26/17 01/26/17 01/26/17 14:26 14:48 14:48 WBC 7.4 RBC 4.25 Hgb 8.5 L Hct 29.6 L MCV 69.6 L MCH 20.0 L MCHC 28.7 L RDW 18.1 H Plt Count 296 MPV 9.7 Gran % 89.8 H Lymph % (Auto) 5.6 L Coffey % (Auto) 4.5 Eos % (Auto) 0.1 L Baso % (Auto) 0.0 Gran # 6.62 H Lymph # 0.4 L Coffey # 0.3 Eos # 0.0 Baso # 0.00 ESR 45 H PT INR APTT D-Dimer, Quantitative pO2 VBG pH VBG pCO2 VBG HCO3 VBG Total CO2 VBG O2 Sat (Calc) VBG Base Excess VBG Potassium Sodium 139 Chloride 103 Glucose Lactate FiO2 Potassium 3.4 L Carbon Dioxide 24 Anion Gap 15 BUN 13 Creatinine 0.8 Est GFR ( Amer) > 60 Est GFR (Non-Af Amer) > 60 Random Glucose 99 Calcium 9.2 Magnesium 2.2 Total Bilirubin 0.7 AST 28 ALT 25 Alkaline Phosphatase 74 Lactate Dehydrogenase 610 Total Creatine Kinase 51 Troponin I < 0.01 NT-Pro-B Natriuret Pep 551 H Total Protein 7.7 Albumin 4.1 Globulin 3.7 Albumin/Globulin Ratio 1.1 Venous Blood Potassium Urine Color Yellow Urine Appearance Sl cloudy Urine pH 5.5 Ur Specific Thrall 1.025 Urine Protein 100 H Urine Glucose (UA) Negative Urine Ketones Negative Urine Blood Negative Urine Nitrate Negative Urine Bilirubin Negative Urine Urobilinogen 0.2 Ur Leukocyte Esterase Negative Urine RBC Negative Urine WBC 5 - 10 Ur Epithelial Cells 6 - 8 Urine Bacteria Mod WBC Casts 2 - 5 H Urine HCG, Qual Negative Influenza Typ A,B (EIA) 01/26/17 01/26/17 01/26/17 14:48 14:48 15:00 WBC RBC Hgb Hct MCV MCH MCHC RDW Plt Count MPV Gran % Lymph % (Auto) Coffey % (Auto) Eos % (Auto) Baso % (Auto) Gran # Lymph # Coffey # Eos # Baso # ESR PT 13.9 H INR 1.27 H APTT 28.5 D-Dimer, Quantitative pO2 51 VBG pH 7.44 H VBG pCO2 36.0 L VBG HCO3 24.5 VBG Total CO2 25.6 VBG O2 Sat (Calc) 89.7 H VBG Base Excess 0.6 VBG Potassium 3.3 L Sodium 138.0 Chloride 105.0 Glucose 96 Lactate 1.0 FiO2 21.0 Potassium Carbon Dioxide Anion Gap BUN Creatinine Est GFR ( Amer) Est GFR (Non-Af Amer) Random Glucose Calcium Magnesium Total Bilirubin AST ALT Alkaline Phosphatase Lactate Dehydrogenase Total Creatine Kinase Troponin I NT-Pro-B Natriuret Pep Total Protein Albumin Globulin Albumin/Globulin Ratio Venous Blood Potassium 3.3 L Urine Color Urine Appearance Urine pH Ur Specific Thrall Urine Protein Urine Glucose (UA) Urine Ketones Urine Blood Urine Nitrate Urine Bilirubin Urine Urobilinogen Ur Leukocyte Esterase Urine RBC Urine WBC Ur Epithelial Cells Urine Bacteria WBC Casts Urine HCG, Qual Influenza Typ A,B (EIA) Negative for flu a/b 01/26/17 15:21 WBC RBC Hgb Hct MCV MCH MCHC RDW Plt Count MPV Gran % Lymph % (Auto) Coffey % (Auto) Eos % (Auto) Baso % (Auto) Gran # Lymph # Coffey # Eos # Baso # ESR PT INR APTT D-Dimer, Quantitative 1087 H pO2 VBG pH VBG pCO2 VBG HCO3 VBG Total CO2 VBG O2 Sat (Calc) VBG Base Excess VBG Potassium Sodium Chloride Glucose Lactate FiO2 Potassium Carbon Dioxide Anion Gap BUN Creatinine Est GFR ( Amer) Est GFR (Non-Af Amer) Random Glucose Calcium Magnesium Total Bilirubin AST ALT Alkaline Phosphatase Lactate Dehydrogenase Total Creatine Kinase Troponin I NT-Pro-B Natriuret Pep Total Protein Albumin Globulin Albumin/Globulin Ratio Venous Blood Potassium Urine Color Urine Appearance Urine pH Ur Specific Thrall Urine Protein Urine Glucose (UA) Urine Ketones Urine Blood Urine Nitrate Urine Bilirubin Urine Urobilinogen Ur Leukocyte Esterase Urine RBC Urine WBC Ur Epithelial Cells Urine Bacteria WBC Casts Urine HCG, Qual Influenza Typ A,B (EIA) Assessment & Plan - Assessment and Plan (Free Text) Assessment: A/P 46 F w/ HTN and fibroids presents with b/l LE pain. WBC casts on UA. B/L LE Pain - CPK, ESR, CRP - CT Pelvis - XR Pelvis Anemia - Ferritin, Folate, Iron, TIBC, B12 - Retic count - CBC in AM HTN - Continue home metoprolol - Lipid Panel Sexually active with - Hep panel, HIV
--- NOTE | 2017-01-26 19:39 | CARD ---
APPROVED REPORT EKG Measurement Heart [id number] <Conclusion> Normal sinus rhythm Minimal voltage criteria for LVH, may be normal variant Cannot rule out Anterior infarct, age undetermined Abnormal ECG
[2017-01-26 20:31] LABS: IRON 13 ug/dL (45-180)
--- NOTE | 2017-01-26 21:05 | CT ---
EXAM: CT Angiography Chest With Intravenous Contrast CLINICAL HISTORY: 46 years old, female; Abnormal findings; Abnormal diagnostic tests; Elevated d-dimer; Additional info: Cp elevated dimer TECHNIQUE: Axial computed tomographic angiography images of the chest with intravenous contrast using pulmonary embolism protocol. All CT scans at this facility use one or more dose reduction techniques, viz.: automated exposure control; ma/kV adjustment per patient size (including targeted exams where dose is matched to indication; i.e. head); or iterative reconstruction technique. MIP reconstructed images were created and reviewed. Coronal and sagittal reformatted images were created and reviewed. CONTRAST: 90 mL of OMNI 350 administered intravenously. COMPARISON: No relevant prior studies available. FINDINGS: Limitations: Motion artifact - mild to moderate. Pulmonary arteries: No definite pulmonary embolism. Aorta: No aneurysm. No dissection. Lungs: No consolidation. Pleural space: Trace bilateral pleural effusions. No pneumothorax. Heart: Moderate cardiomegaly. No significant pericardial effusion. Bones/joints: No acute fracture. Soft tissues: Unremarkable. Lymph nodes: No pathologically enlarged lymph nodes. Upper abdomen: See abdomen CT report for additional details. IMPRESSION: 1. No definite CT evidence of pulmonary embolism. 2. Incidental/non-acute findings are described above.
--- NOTE | 2017-01-26 21:05 | CT ---
EXAM: CT Abdomen and Pelvis With Intravenous Contrast CLINICAL HISTORY: 46 years old, female; Pain; Abdominal pain; Prior surgery; Surgery type: ; Additional info: Abd pain fever TECHNIQUE: Axial computed tomography images of the abdomen and pelvis with intravenous contrast. All CT scans at this facility use one or more dose reduction techniques, viz.: automated exposure control; ma/kV adjustment per patient size (including targeted exams where dose is matched to indication; i.e. head); or iterative reconstruction technique. Coronal and sagittal reformatted images were created and reviewed. CONTRAST: 56 mL of OMNI 350 administered intravenously. COMPARISON: DX - PELVIS ONE VIEW 2017-01-26 16:10 FINDINGS: Lower thorax: See chest CT report for additional details. ABDOMEN: Liver: Unremarkable. No mass. Gallbladder and bile ducts: No calcified stones. No ductal dilation. Pancreas: No ductal dilation. No mass. Spleen: 1.3 x 1.5 x 1.4 cm hypodense lesion within spleen, indeterminate by CT criteria. Adrenals: No mass. Kidneys and ureters: Too small to characterize lesion within RIGHT kidney. No hydronephrosis. Stomach and bowel: No definite mural thickening. No obstruction. Appendix: No definite findings to suggest acute appendicitis. PELVIS: Bladder: Unremarkable. Reproductive: Markedly enlarged, lobulated uterus with scattered coarse calcifications, roughly 28 x 19 x 24 cm. ABDOMEN and PELVIS: Intraperitoneal space: Small free fluid within abdomen and pelvis. No free air. Bones/joints: No acute fracture. Soft tissues: Mild soft tissue thickening about umbilicus. Vasculature: Dilated gonadal veins. Compressed IVC. No aneurysm. Lymph nodes: No pathologically enlarged lymph nodes. IMPRESSION: 1. Probable markedly enlarged, fibroid uterus. Underlying malignancy not entirely excluded. 2. Splenic lesion, indeterminate. Suggest nonemergent MRI. 3. Incidental/non-acute findings are described above.
[2017-01-26] MEDS: Piperacillin/Tazobact 3.375 gm 100 ML IVPB SCH (21:29)
--- NOTE | 2017-01-26 21:50 | CP.PCM.CON ---
History of Present Illness - History of Present Illness History of Present Illness: 46 year old female with a history of HTN, presenting with inner thigh pain, found to have anemia. The patient notes she was told she had low iron in the past and prescribed oral iron. She has not been compliant with her iron pills. She did have heavy periods in the past but feels they have improved more recently. She denies significant fatigue but does get short of breath easily with stairs. She denies abnormal bleeding and bruising. She is unsure if she pulled a muscle in her inner thigh working at the [employer]. Past medical history: HTN Past surgical history: None Family history: Denies hematologic and oncologic problems Social history: Former tobacco abuse, social ETOH, denies illicit drug use. Allergies: NKA Review of systems: All remaining review of systems including HEENT, cardiovascular, respiratory, gastrointestinal, genitourinary, musculoskeletal, dermatologic, neurologic, and psychiatric are negative unless mentioned in the HPI. Past Patient History - Infectious Disease Hx of Infectious Diseases: None - Past Social History Smoking Status: Never Smoked - CARDIAC Hx Cardiac Disorders: Yes Hx Hypertension: Yes - PULMONARY Hx Respiratory Disorders: No - NEUROLOGICAL Hx Neurological Disorder: No - HEENT Hx HEENT Problems: No - RENAL Hx Chronic Kidney Disease: No - ENDOCRINE/METABOLIC Hx Endocrine Disorders: No - HEMATOLOGICAL/ONCOLOGICAL Hx Blood Disorders: No - INTEGUMENTARY Hx Dermatological Problems: No - MUSCULOSKELETAL/RHEUMATOLOGICAL Hx Musculoskeletal Disorders: No - GASTROINTESTINAL Hx Gastrointestinal Disorders: No - GENITOURINARY/GYNECOLOGICAL Hx Genitourinary Disorders: No - PSYCHIATRIC Hx Psychophysiologic Disorder: No Hx Substance Use: No - SURGICAL HISTORY Hx Section: Yes - ANESTHESIA Hx Anesthesia: Yes Hx Anesthesia Reactions: No Hx Malignant Hyperthermia: No Meds Allergies/Adverse Reactions: Allergies Allergy/AdvReac Type Severity Reaction Status Date / Time No Known Allergies Allergy Verified 01/26/17 14:14 - Medications Medications: Current Medications Acetaminophen (Tylenol 325mg Tab) 650 mg PO Q6H PRN PRN Reason: FOR TEMP>=99.5F Acetaminophen (Tylenol 650 Mg Supp) 650 mg RC Q4H PRN PRN Reason: FOR TEMP>=99.5F Metronidazole (Flagyl) 500 mg in 100 mls @ 100 mls/hr IVPB Q8 [facility] PRN Reason: Protocol Piperacillin Sod/Tazobactam Sod (Zosyn 3.375 In Ns 100ml) 100 mls @ 200 mls/hr IVPB Q6 [facility] PRN Reason: Protocol Stop: 02/01/17 12:29 Last Admin: 01/26/17 21:29 Dose: 200 mls/hr Sodium Chloride (Sodium Chloride 0.9%) 1,000 mls @ 100 mls/hr IV .Q10H [facility] Last Admin: 01/26/17 19:46 Dose: 100 mls/hr Metoprolol Tartrate (Lopressor) 50 mg PO DAILY [facility] Pantoprazole Sodium (Protonix Ec Tab) 40 mg PO 0600,1600 [facility] Physical Exam - Head Exam Head Exam: ATRAUMATIC - Eye Exam Eye Exam: Normal appearance - ENT Exam ENT Exam: Mucous Membranes Dry - Respiratory Exam Respiratory Exam: NORMAL BREATHING PATTERN - Cardiovascular Exam Cardiovascular Exam: +S1, +S2 - GI/Abdominal Exam GI & Abdominal Exam: Normal Bowel Sounds - Extremities Exam Extremities exam: Positive for: normal inspection - Neurological Exam Neurological exam: Oriented x3 - Psychiatric Exam Psychiatric exam: Normal Affect, Normal Mood - Skin Skin Exam: Warm Results - Vital Signs Recent Vital Signs: Last Vital Signs Temp 98.6 F 01/26/17 17:06 Pulse 78 01/26/17 20:38 Resp 18 01/26/17 20:38 BP 150/93 H 01/26/17 20:38 Pulse Ox 100 01/26/17 20:38 - Labs Result Diagrams: 01/26/17 14:48 01/26/17 14:48 Labs: Laboratory Results - last 24 hr 01/26/17 01/26/17 01/26/17 19:59 19:59 19:59 Retic Count 0.30 L Lactic Acid Iron 13 L TIBC 299 % Saturation 4 L Total Creatine Kinase 55 Triglycerides 81 Cholesterol 107 L LDL Cholesterol Direct 56 HDL Cholesterol 30 Beta HCG, Quant 01/26/17 01/26/17 19:59 19:59 Retic Count Lactic Acid 0.8 Iron TIBC % Saturation Total Creatine Kinase Triglycerides Cholesterol LDL Cholesterol Direct HDL Cholesterol Beta HCG, Quant < 2.39 Assessment & Plan (1) Anemia Assessment and Plan: hypoproliferative erythroid response by retic ferritin results pending to evaluate iron stores; suspect iron deficiency and will start IV iron pt does have uterine fibroids by imaging will send hemoglobin electropheresis to rule out hemoglobinopathy Status: Acute (2) Splenic lesion Assessment and Plan: seen on CT non emergent MRI recommended Thank you for this interesting consult. Status: Acute
[2017-01-26] MEDS ORDERED: Pneumococcal 23-Valent Vaccine IM ONE (22:16)
[2017-01-26] MEDS ORDERED: Influenza Vaccine 60 mcg/0.5 mL SYR (4YR UP) IM ONE (22:16)
[2017-01-26] MEDS: metroNIDAZOLE IV 500 mg/100 ml 500 MG/100 ML BAG IVPB SCH ×2 (23:14→23:37)
[2017-01-26] MEDS: Pantoprazole 40 mg EC Tab PO SCH ×2 (23:14→23:28)
[2017-01-27] MEDS: Piperacillin/Tazobact 3.375 gm 100 ML IVPB SCH ×5 (02:20→23:39)
[2017-01-27] MEDS: metroNIDAZOLE IV 500 mg/100 ml 500 MG/100 ML BAG IVPB SCH ×3 (06:06→21:22)
[2017-01-27 06:51] LABS: BASO # 0.01 K/mm3 (0.0-2.0); BASO % 0.2 % (0.0-3.0); EOS # 0.1 (0.0-0.7); GRAN # 4.95 (1.4-6.5); GRAN % 80.7 % (50.0-68.0); HEMATOCRIT 26.1 % (36.0-48.0); LYMPH # 0.7 (1.2-3.4); LYMPH % 10.9 % (22.0-35.0); MEAN CELL VOLUME 69.8 fl (80.0-105.0); MEAN CORPUSCULAR HEMOGLOBIN 20.1 pg (25.0-35.0); MEAN CORPUSCULAR HGB CONC 28.7 g/dl (31.0-37.0); MEAN PLATELET VOLUME 9.9 fl (7.0-11.0); MONO # 0.4 (0.1-0.6); MONO % 7.2 % (1.0-6.0); RED CELL DISTRIBUTION WIDTH 18.1 % (11.5-14.5); WHITE BLOOD COUNT 6.1 10^3/ul (4.5-11.0)
[2017-01-27] MEDS: Pantoprazole 40 mg EC Tab PO SCH ×2 (07:33→17:05)
[2017-01-27] MEDS ORDERED: Sodium Chloride 0.9% 1,000 ML IV SCH (08:15)
[2017-01-27 08:18] LABS: ALKALINE PHOSPHATASE 68 U/L (38-126); ALT/SGPT 23 U/L (7-56); AST/SGOT 22 U/L (14-36); BILIRUBIN,DIRECT 0.5 mg/dL (0.0-0.4); BILIRUBIN,TOTAL 0.5 mg/dL (0.2-1.3); BLOOD UREA NITROGEN 9 mg/dL (7-21); CALCIUM 8.3 mg/dL (8.4-10.5); CARBON DIOXIDE 25 mmol/L (21-33); CHLORIDE 106 mmol/L (98-107); GFR AFRICAN-AMERICAN > 60; GLUCOSE,RANDOM 88 mg/dL (70-110); MAGNESIUM 2.1 mg/dL (1.7-2.2); POTASSIUM 3.3 mmol/L (3.6-5.0); SODIUM 139 mmol/L (132-148); TOTAL PROTEIN 6.7 g/dL (5.8-8.3)
[2017-01-27 13:03] LABS: FOLATE 8.2 ng/mL
--- NOTE | 2017-01-27 16:06 | CP.PCM.PN ---
Subjective - Date & Time of Evaluation Date of Evaluation: 01/27/17 Time of Evaluation: 09:00 - Subjective Subjective: PGY-[address] Conti Pt states that groin pain persists and not controlled by current pain regimen. She is continent of [place]. Objective - Vital Signs/Intake and Output Vital Signs (last 24 hours): Temp Pulse Resp BP Pulse Ox 98.4 F 86 20 162/90 H 98 01/27/17 15:16 01/27/17 15:16 01/27/17 15:16 01/27/17 15:16 01/27/17 06:00 Intake and Output: 01/27/17 01/27/17 06:59 18:59 Intake Total 240 Balance 240 - Medications Medications: Current Medications Acetaminophen (Tylenol 325mg Tab) 650 mg PO Q6H PRN PRN Reason: FOR TEMP>=99.5F Acetaminophen (Tylenol 650 Mg Supp) 650 mg RC Q4H PRN PRN Reason: FOR TEMP>=99.5F Hydralazine HCl (Apresoline) 10 mg IVP Q6 PRN PRN Reason: Systolic Blood Pressure Metronidazole (Flagyl) 500 mg in 100 mls @ 100 mls/hr IVPB Q8 [facility] PRN Reason: Protocol Last Admin: 01/27/17 06:06 Dose: 100 mls/hr Piperacillin Sod/Tazobactam Sod (Zosyn 3.375 In Ns 100ml) 100 mls @ 200 mls/hr IVPB Q6 [facility] PRN Reason: Protocol Stop: 02/01/17 12:29 Last Admin: 01/27/17 12:58 Dose: Not Given Iron Sucrose 200 mg/ Sodium (Chloride) 110 mls @ 110 mls/hr IVPB DAILY [facility] Stop: 02/01/17 22:01 Last Admin: 01/27/17 00:45 Dose: 110 mls/hr Sodium Chloride (Sodium Chloride 0.9%) 1,000 mls @ 60 mls/hr IV .[id number] [facility] Last Admin: 01/27/17 09:12 Dose: 60 mls/hr Losartan Potassium (Cozaar) 50 mg PO DAILY [facility] Last Admin: 01/27/17 09:07 Dose: 50 mg Metoprolol Tartrate (Lopressor) 50 mg PO DAILY [facility] Pantoprazole Sodium (Protonix Ec Tab) 40 mg PO 0600,1600 [facility] Last Admin: 01/27/17 07:33 Dose: Not Given Tramadol HCl (Ultram) 50 mg PO Q8 [facility] Last Admin: 01/27/17 12:05 Dose: 50 mg - Labs Labs: 01/27/17 06:20 01/27/17 06:20 PT 13.9 SECONDS (9.4-12.5) H 01/26/17 15:00 INR 1.27 (0.93-1.08) H 01/26/17 15:00 APTT 28.5 Seconds (25.1-36.5) 01/26/17 15:00 - Constitutional Appears: No Acute Distress - Head Exam Head Exam: ATRAUMATIC, NORMAL INSPECTION, NORMOCEPHALIC - Eye Exam Eye Exam: EOMI, Normal appearance, PERRL Pupil Exam: NORMAL ACCOMODATION - ENT Exam ENT Exam: Mucous Membranes Moist - Neck Exam Additional comments: supple - Respiratory Exam Respiratory Exam: Clear to Ausculation Bilateral. absent: Rales, Rhonchi, Wheezes - Cardiovascular Exam Cardiovascular Exam: REGULAR RHYTHM, Murmur. absent: +S1, +S2 - GI/Abdominal Exam GI & Abdominal Exam: Soft, Normal Bowel Sounds. absent: Guarding, Rigid, Tenderness - Rectal Exam Additional comments: Chaperoned by RN, Jazmín, Dermatome S2-S5 intact - Extremities Exam Extremities Exam: Normal Capillary Refill. absent: Calf Tenderness, Pedal Edema - Back Exam Back Exam: absent: CVA tenderness (L), CVA tenderness (R) - Neurological Exam Neurological Exam: Alert, Awake, Oriented x3. absent: Normal Gait (limited by pain) - Psychiatric Exam Psychiatric exam: Normal Affect, Normal Mood - Skin Skin Exam: Dry, Warm Assessment and Plan - Assessment and Plan (Free Text) Plan: 46 F w/ congenital heart murmur, HTN, and fibroids presents with b/l LE pain. She was found to have a 28cm enlarged lobulated uterus with scattered coarse calfification suspicious of malignancy. She was found to have microcytic anemia requiring blood transfusion. WBC casts on UA with proteinuria but no blood in urine. Hyperdirectbilirubinemia was mild without B/L LE Pain, likely musculoskeletal, r/o cancer - tramadol 50 po q8 [facility] - CPK normal - CRP is high - XR Pelvis - no fracture or dislocation - Pending MRI Abdomen and pelvis with contrast - Pending MRI lumbar spine R/O Cancer 28cm enlarged lobulated uterus with scattered coarse calfification - Per OBGYN on phone (O) [phone] - Outpatient endometrial bx. Outpatient workup prior to decision of possible hysterectomy. - Pending CA 125 Splenic lesion - pending MRI Microcytic Anemia, fe deficiency, acute on chronic, s/p pRBC & IV venofar Hypoproliferative erythroid response - High erythropoein - Normal TIBC, B12 - flow cytometry??? bone marrow bx??? - pending stool occult blood test HTN, elevated - Continue home metoprolol - Lipid Panel - hydralazine 10q6 PRN when SBP > 180 Cardiomegaly Congenital heart murmur - CXR: moderate cardiomegaly and prominent central vasculature Sexually active with - negative Hep panel, negative HIV s/r/d/w Dr. Conti
[2017-01-27 18:08] LABS: BASO # 0.02 K/mm3 (0.0-2.0); BASO % 0.3 % (0.0-3.0); EOS # 0.1 (0.0-0.7); EOS % 1.2 % (1.5-5.0); GRAN # 5.19 (1.4-6.5); GRAN % 77.6 % (50.0-68.0); HEMATOCRIT 29.3 % (36.0-48.0); LYMPH % 15.4 % (22.0-35.0); MEAN CELL VOLUME 70.9 fl (80.0-105.0); MEAN CORPUSCULAR HEMOGLOBIN 20.8 pg (25.0-35.0); MEAN CORPUSCULAR HGB CONC 29.4 g/dl (31.0-37.0); MEAN PLATELET VOLUME 10.3 fl (7.0-11.0); MONO # 0.4 (0.1-0.6); MONO % 5.5 % (1.0-6.0); RED CELL DISTRIBUTION WIDTH 18.5 % (11.5-14.5); WHITE BLOOD COUNT 6.7 10^3/ul (4.5-11.0)
--- NOTE | 2017-01-27 18:52 | CP.PCM.PN ---
Subjective - Date & Time of Evaluation Date of Evaluation: 01/27/17 Time of Evaluation: 18:10 - Subjective Subjective: Has inner thigh pain Feels better after 1unit PRBC, for an additional until tonight. Objective - Vital Signs/Intake and Output Vital Signs (last 24 hours): Temp Pulse Resp BP Pulse Ox 98.9 F 89 20 153/91 H 98 01/27/17 17:36 01/27/17 18:00 01/27/17 17:36 01/27/17 17:36 01/27/17 06:00 Intake and Output: 01/27/17 01/27/17 06:59 18:59 Intake Total 615 Balance 615 - Medications Medications: Current Medications Acetaminophen (Tylenol 325mg Tab) 650 mg PO Q6H PRN PRN Reason: FOR TEMP>=99.5F Acetaminophen (Tylenol 650 Mg Supp) 650 mg RC Q4H PRN PRN Reason: FOR TEMP>=99.5F Hydralazine HCl (Apresoline) 10 mg IVP Q6 PRN PRN Reason: Systolic Blood Pressure Metronidazole (Flagyl) 500 mg in 100 mls @ 100 mls/hr IVPB Q8 [facility] PRN Reason: Protocol Last Admin: 01/27/17 17:05 Dose: Not Given Piperacillin Sod/Tazobactam Sod (Zosyn 3.375 In Ns 100ml) 100 mls @ 200 mls/hr IVPB Q6 [facility] PRN Reason: Protocol Stop: 02/01/17 12:29 Last Admin: 01/27/17 17:08 Dose: 200 mls/hr Iron Sucrose 200 mg/ Sodium (Chloride) 110 mls @ 110 mls/hr IVPB DAILY [facility] Stop: 02/01/17 22:01 Last Admin: 01/27/17 00:45 Dose: 110 mls/hr Sodium Chloride (Sodium Chloride 0.9%) 1,000 mls @ 60 mls/hr IV .[id number] [facility] Last Admin: 01/27/17 09:12 Dose: 60 mls/hr Losartan Potassium (Cozaar) 50 mg PO DAILY [facility] Last Admin: 01/27/17 09:07 Dose: 50 mg Metoprolol Tartrate (Lopressor) 50 mg PO DAILY [facility] Pantoprazole Sodium (Protonix Ec Tab) 40 mg PO 0600,1600 [facility] Last Admin: 01/27/17 17:05 Dose: 40 mg Tramadol HCl (Ultram) 50 mg PO Q8 [facility] Last Admin: 01/27/17 17:07 Dose: Not Given - Labs Labs: 01/27/17 18:00 01/27/17 06:20 PT 13.9 SECONDS (9.4-12.5) H 01/26/17 15:00 INR 1.27 (0.93-1.08) H 01/26/17 15:00 APTT 30.2 Seconds (25.1-36.5) 01/27/17 18:00 - Head Exam Head Exam: ATRAUMATIC - Eye Exam Eye Exam: Normal appearance - ENT Exam ENT Exam: Mucous Membranes Dry - Respiratory Exam Respiratory Exam: NORMAL BREATHING PATTERN - Cardiovascular Exam Cardiovascular Exam: +S1, +S2 - GI/Abdominal Exam GI & Abdominal Exam: Normal Bowel Sounds - Extremities Exam Extremities Exam: Normal Inspection Assessment and Plan (1) Anemia Assessment & Plan: iron deficiency; uterine fibroids noted [employer] f/u PRBC transfusion support Venofer daily Status: Acute (2) Splenic lesion Assessment & Plan: for MRI evaluation Status: Acute
--- NOTE | 2017-01-27 19:53 | CON ---
DATE: NEUROLOGY CONSULTATION REASON FOR CONSULTATION: Pain in the thigh. HISTORY OF PRESENT ILLNESS: The patient is a 46-year-old female, who came to the hospital because of a complaint of pain in her thigh. The patient said it is going on for about a week. It is mainly in the groin region bilaterally. When she is sitting, she is fine. As soon as she starts walking, her groin hurts. She denies any focal weakness in arms or legs. Denies any tingling, numbness in the legs. Denies having any significant low back pain. She took [id number] medication, which did not help her pain, so she decided to come to the emergency room. REVIEW OF SYSTEMS: Denies any headache, dizziness, chest pain, shortness of breath, abdominal pain, constipation, diarrhea, dysuria, cough, or sputum production. PAST MEDICAL HISTORY: Includes hypertension and fibroids. MEDICATIONS: At home included metoprolol, ibuprofen, and cyclobenzaprine. ALLERGIES: NO KNOWN DRUG ALLERGIES. SOCIAL HISTORY: Denies smoking, use of alcohol or illicit drugs. FAMILY HISTORY: Reviewed and noncontributory to the case. PHYSICAL EXAMINATION: GENERAL: The patient is a middle-aged, pleasant female, sitting in no acute distress. VITAL SIGNS: Her blood pressure is 164/100, heart rate is 80 per minute, breathing at the rate of 16 per minute and temperature is 98.7 degrees Fahrenheit. HEENT: Head is normocephalic and atraumatic. NECK: Supple. There are no carotid bruits. LUNGS: Clear. CARDIOVASCULAR: S1 and S2 audible. No murmurs. ABDOMEN: Soft and nontender. Bowel sounds are present. NEUROLOGIC: Mental status. The patient is awake, alert, and oriented to time, place, person. Speech is fluent. Naming and repetition is normal. Memory and cognition are intact. Cranial nerves: Pupils are 4 mm bilaterally reactive to light. Visual shahid are full. Extraocular movements are intact. There is no facial asymmetry. Palate is upgoing bilaterally and tongue is midline. Motor: Tone is normal. Power is 5/5 bilaterally in all extremities. Reflexes +2 and symmetrical. Plantars are downgoing bilaterally. Cerebellar: [id number] shows no dysmetria. Gait is deferred at the moment. Sensory examination intact to soft touch and pinprick. LABORATORY DATA: Reviewed. Shows WBC of 6.1, hemoglobin 7.5, hematocrit 26.1, and platelets of 262. Sodium is 139, potassium 3.3, chloride 106, carbon dioxide content 25, BUN of 9, creatinine 0.7, and glucose of 88. She had x-ray of her pelvis, which shows no acute fracture or dislocation. She also had abdominal and pelvis CT, which shows probable markedly enlarged fibroid uterus, underlying malignancy not entirely excluded. Splenic lesion indeterminate. IMPRESSION: Groin pain, which appears to be secondary to musculoskeletal strain. The patient does lot of heavy work at her job. Fibroid may have some contribution to it as well. RECOMMENDATIONS: 1. The patient to be started on tramadol as according to the patient, the ibuprofen is not helping her pain symptoms. 2. The patient's blood pressure needs to be better controlled. 3. The patient to have physical therapy evaluation. 4. Please continue other treatment and supportive care. Thank you for the opportunity to participate in the care of this patient. Leigh Ann Saunders MD
--- NOTE | 2017-01-27 20:42 | CARD ---
APPROVED REPORT EXAM: Two-dimensional and M-mode echocardiogram with Doppler and color Doppler. INDICATION CARDIOMEGLY 2D DIMENSIONS Left Atrium (2D)4.1 (1.6-4.0cm)IVSd1.2 (0.7-1.1cm) LVDd5.2 (3.9-5.9cm)LVOT Diameter1.9 (1.8-2.4cm) PWd1.2 (0.7-1.1cm)LVDs3.4 (2.5-4.0cm) FS (%) 34.8 %LVEF (%)63.7 (>50%) M-Mode DIMENSIONS Aortic Root2.70 (2.2-3.7cm)Aortic Cusp Exc.1.60 (1.5-2.0cm) Aortic Valve AoV Peak Jxuflkgr028.0cm/sAoV VTI52.4cmAO Peak GR.29mmHg LVOT Peak Cjtjmkmh579.0cm/sLVOT VTI29.90cmAO Mean GR.14mmHg KATHERIN (VMAX)1.03wh7GWF (VTI)1.62cm2 Mitral Valve MV E Umruubpb270.0cm/sMV A Vqbomtyv739.0cm/sE/A ratio1.2 TDI E/Lateral E'0.0E/Medial E'0.0 Tricuspid Valve TR Peak Newrdrlj545ed/sRAP WITWEOTT58dmAmUP Peak Gr.28mmHg [id number] LEFT VENTRICLE The left ventricle is normal size. There is mild concentric left ventricular hypertrophy. The left ventricular function is normal.EF-60-65% There is normal LV segmental wall motion. Transmitral Doppler flow pattern is Grade III-reversible restrictive diastolic dysfunction. No left ventricle thrombus noted on this study. There is no ventricular septal defect visualized. There is no left ventricular aneurysm. There is no mass noted in the left ventricle. RIGHT VENTRICLE The right ventricle is normal size. There is normal right ventricular wall thickness. The right ventricular systolic function is normal. ATRIA The left atrium is borderline dilated. The right atrium size is normal. The interatrial septum is intact with no evidence for an atrial septal defect. AORTIC VALVE The aortic valve is thickened but opens well. The aortic valve is mildly to moderately sclerotic. No aortic regurgitation is present. Aotic Sclerosis Vs Mild MITRAL VALVE The mitral valve is thickened but opens well. Mitral annular calcification is mild. Mitral regurgitation is mild. There is no mitral valve stenosis. There is no evidence of mitral valve prolapse. TRICUSPID VALVE The tricuspid valve leaflets are thickened , but open well. There is mild tricuspid regurgitation.RVSp-38 mmof hg. There is no tricuspid valve stenosis. There is no tricuspid valve prolapse or vegetation. PULMONIC VALVE The pulmonic valve is borderline thickened. There is trace pulmonic valvular regurgitation. There is no pulmonic valvular stenosis. GREAT VESSELS The aortic root is normal in size. The ascending aorta is normal in size. The pulmonary artery is normal. The IVC is normal in size and collapses >50% with inspiration. PERICARDIAL EFFUSION There is no pleural effusion. There is no pericardial effusion. <Conclusion> The left ventricle is normal size. There is mild concentric left ventricular hypertrophy. The left ventricular function is normal.EF-60-65% Aotic Sclerosis Vs Mild There is mild tricuspid regurgitation.RVSp-38 mmof hg. Mitral regurgitation is mild. There is no pericardial effusion. no vegetation or thrombus noted.
--- NOTE | 2017-01-28 02:05 | PN ---
DATE: 01/27/2017 SUBJECTIVE: The patient is seen in room 374, bed one. The patient is seen sitting up in the bed. Patient still does not make eye contact, and the patient when communicated with, does not look at me, the patient keeps looking away from me. While answering questions initially last night, the patient refused packed red blood cell transfusion despite multiple reinforcement by the nurses and the medical sales associate, but agreed this morning. The patient's overnight nurse's notes were reviewed. PHYSICAL EXAMINATION: VITAL SIGNS: T-max 100.7, down to 98.4-98.6, heart rate 84, 79, 78, 88, blood pressure 150/93, 180/100, 164/100, 175/95, respirations 20, O2 sat is 97-98%. HEENT: Head: Normocephalic, atraumatic. HEENT examination shows pale conjunctivae. Anicteric sclerae. No oropharyngeal lesion. NECK: No neck rigidity. CHEST: Kyphosis. LUNGS: Shows no rales, crackles or wheezing. CARDIOVASCULAR: S1, S2, regular rhythm. Positive systolic murmur, right second intercostal space, left sternal border, left second intercostal space. ABDOMEN: Morbidly distended, obese, protuberant, diffuse, firm, and hard. GENITALIA: Female. RECTAL: Deferred. EXTREMITIES: Shows no pitting, no calf tenderness. No Homans' sign. NEUROLOGIC: The patient is alert, awake and oriented x3. Cranial nerves II-XII intact. Gait examination is not tested. VASCULAR: Palpable pulses. MUSCULOSKELETAL: Shows a body mass index of 30. DIAGNOSTIC DATA: 01/27/2017, WBC 6.1, hemoglobin/hematocrit has dropped to 7.5, 26.1, MCV 69.8, platelet 262. Granulocytes 81% segs. ESR 45. Retic count is low. D-dimer was elevated at 1087. Abnormal labs from 01/27/2017, potassium 3.3, magnesium 2.1. LFTs are normal. C-reactive protein is greater than 15. Iron is 13. Iron saturation for erythropoietin is 161, ferritin is low at 37. Procalcitonin level is 0.64. B12 and folate are within normal limit. Cholesterol is excellent at 107, LDL 56, HDL 30. Potassium is 3.3. Hepatitis A and B, C serologies negative, HIV negative, influenza titer negative. Urinalysis shows 100 protein. Blood cultures no growth. Blood type AB+. The patient had a CT of the chest, pelvic x-ray, chest x-ray, Venous Doppler, CT angio of the chest, CT abdomen and pelvis all reviewed. The patient's echocardiogram. Venous Doppler of the lower extremity. Chest x-ray shows cardiomegaly, prominent vascular central congestion. Pelvic x-rays shows no fractures. EKG shows hypertensive cardiovascular disease. The patient's echocardiogram noted. IMPRESSION AND PLAN: 1. Bilateral inguinal and groin pain, etiology undetermined. 2. Fever of 100.7. 3. Uncontrolled hypertension. 4. Hypertension. 5. Microcytic anemia. 6. Elevated erythrocyte sedimentation rate of 45. 7. Hypoproliferative erythroid response. 8. Elevated D-dimer of greater than 1000, etiology undetermined. 9. Hypokalemia. 10. Iron-deficiency microcytic anemia. 11. Elevated C-reactive protein. 12. Hyperprolactinemia. 13. Proteinuria. 14. Status post packed red blood cell transfusion x1. 15. Splenic hypodense lesion, indeterminate. 16. Markedly enlarged lobulated uterus with calcification 28 x 19 x 24 cm. 17. Abdominopelvic free fluid. 18. Dilated gonadal vein with compressed inferior vena cava and umbilical soft tissue thickening. 19. Trace bilateral pleural effusion with moderate cardiomegaly. 20. Cardiomegaly with prominent central vasculature. 21. Hypertensive cardiovascular disease with left ventricular ejection fraction of greater than 60%. 22. Grade 3 reversible restrictive diastolic dysfunction. 23. Borderline dilated left atrium. 24. Thickened aortic valve with moderately sclerotic aortic valve, aortic sclerosis versus mild aortic stenosis. 25. Thickened mitral valve with mild mitral annular calcification and mild mitral regurgitation. 26. Thickened tricuspid valve with mild tricuspid regurgitation and right ventricular systolic pressure of 38 mmHg. 27. Trace pulmonic regurgitation. 28. Aortic sclerosis versus mild aortic stenosis. 29. Age-indeterminate inferior infarct with Q-wave in lead III. 30. Questionable history of menorrhagia. 31. Splenic lesion. 32. Hypoproliferative erythroid response with decreased reticulocyte count. 33. Musculoskeletal groin strain and pain. 34. History of alcohol use. 35. History of section x2. PLAN: At this time, the patient has been ordered total of 2 units of PRBC. The patient has been ordered GI consultation, Hematology/Oncology consultation, Infectious Disease consultation. The patient has been ordered Neurology consultation. The patient has been ordered GUIDANCE ADVISER consultation. The patient has been ordered repeat CBC, CMP, LFT, magnesium. The patient has been seen by Gastroenterology. CA-125 is ordered. Blood urine cultures ordered. The patient has been ordered GI, Hematology/Oncology, Infectious Disease, Neurology and GUIDANCE ADVISER consultation. CURRENT MEDICATIONS: Hydralazine 10 mg IV q. 6 h. p.r.n., Cozaar 50 mg daily, Flagyl 500 IV q. 8 h. The patient is started on IV Venofer 200 mg daily, K-Dur 20 mEq daily. The patient is on Lopressor 50 mg daily. The patient is on Protonix 40 mg twice a day, Rocephin was given 2 g x1 dose. The patient is on IV fluid 0.9 normal systolic and 60 mL an hour, Tylenol 650 q. 6 h. p.r.n. The patient is started on Ultram, tramadol 50 mg q. 6 h. p.o. q. 8 h. p.r.n. The patient is on Zosyn 3.375 g IV q. 6 h. The patient has been ordered an MRI of the abdomen and pelvis and MRI of the lumbar spine for evaluation of the patient's symptoms. The patient is on heart-healthy diet, out of bed, JASS stockings, SCDs, physical therapy evaluation ordered. The patient has been ordered physical therapy evaluation. The patient has been updated about her condition, diagnosis, treatment plan. The patient's antihypertensive will be adjusted for optimization of blood pressure control. The patient's blood pressure medicine has been updated to Cozaar of 100 mg from 50. The patient is on Lopressor 50 mg daily. The patient will be transfused total to 2 units of PRBC. The patient's MRI of the abdomen and pelvis has been ordered for evaluation of splenic lesion and uterine fibroid. MRI of the lumbar spine ordered for evaluation of pelvic pain. The patient's further management will be dependent upon the patient's clinical condition, hemodynamic status and as per the patient response to therapeutic intervention as per the patient's diagnostic test results and as per recommendation by all physicians involved in the care of the patient. Dictated and electronically signed, not read. Sundeep Conti MD
[2017-01-28] MEDS: metroNIDAZOLE IV 500 mg/100 ml 500 MG/100 ML BAG IVPB SCH (06:00)
[2017-01-28] MEDS: Pantoprazole 40 mg EC Tab PO SCH ×3 (06:00→16:47)
[2017-01-28] MEDS: Piperacillin/Tazobact 3.375 gm 100 ML IVPB SCH ×3 (06:10→18:20)
[2017-01-28 06:56] LABS: BASO # 0.02 K/mm3 (0.0-2.0); BASO % 0.3 % (0.0-3.0); EOS # 0.1 (0.0-0.7); EOS % 1.3 % (1.5-5.0); GRAN # 5.2 (1.4-6.5); GRAN % 76.6 % (50.0-68.0); HEMATOCRIT 28.5 % (36.0-48.0); LYMPH % 14.9 % (22.0-35.0); MEAN CELL VOLUME 70.4 fl (80.0-105.0); MEAN CORPUSCULAR HEMOGLOBIN 20.2 pg (25.0-35.0); MEAN CORPUSCULAR HGB CONC 28.8 g/dl (31.0-37.0); MEAN PLATELET VOLUME 10.3 fl (7.0-11.0); MONO # 0.5 (0.1-0.6); MONO % 6.9 % (1.0-6.0); RED CELL DISTRIBUTION WIDTH 18.1 % (11.5-14.5); WHITE BLOOD COUNT 6.8 10^3/ul (4.5-11.0)
[2017-01-28 07:01] LABS: ALKALINE PHOSPHATASE 70 U/L (38-126); ALT/SGPT 23 U/L (7-56); AST/SGOT 22 U/L (14-36); BILIRUBIN,DIRECT 0.4 mg/dL (0.0-0.4); BILIRUBIN,TOTAL 0.5 mg/dL (0.2-1.3); BLOOD UREA NITROGEN 9 mg/dL (7-21); CALCIUM 8.6 mg/dL (8.4-10.5); CARBON DIOXIDE 25 mmol/L (21-33); CHLORIDE 104 mmol/L (98-107); GFR AFRICAN-AMERICAN > 60; GLUCOSE,RANDOM 92 mg/dL (70-110); POTASSIUM 3.7 mmol/L (3.6-5.0); SODIUM 138 mmol/L (132-148); TOTAL PROTEIN 6.9 g/dL (5.8-8.3)
--- NOTE | 2017-01-28 07:47 | CON ---
DATE: 01/27/2017 HISTORY OF PRESENT ILLNESS: The patient is in bed, in no acute distress. The patient is seen in room #374, bed #1. She states she is having pelvic pain times several days, and she has had low-grade fevers that she did not know about she had in the emergency room, and no nausea, no vomiting, no chest pain, no diarrhea or constipation. PAST MEDICAL HISTORY: Significant for hypertension and fibroids. PAST SURGICAL HISTORY: Significant for x2. ALLERGIES: SHE HAS NO KNOWN ALLERGIES. SOCIAL HISTORY: She works in a postal office. She has a dog, a Pomeranian. She lives with her . No recent travel. Over the summer, they had traveled in a cruise. MEDICATIONS: Include metoprolol and Motrin and cyclobenzaprine. PHYSICAL EXAMINATION: GENERAL: She is in bed, answering questions appropriately. VITAL SIGNS: With a temperature of 98, T-max is 100.7, and heart rate of 82 which was up to 102 earlier, and blood pressure is 174/90, respiratory rate of 20. HEENT: Examination of HEENT is unremarkable. NECK: Supple. LUNGS: Have decreased breath sounds. HEART: Exam, normal S1, S2. ABDOMEN: Abdominal examination is soft, nontender. LABORATORY EXAMINATION AND IMAGING: Reveals the patient's white count of 7.4, hemoglobin of 8, platelets of 296,000 and sed rate is 45, and coagulation is noted. INR of 1.2. D-dimer is elevated and chemistries revealed the patient has BUN of 9, creatinine of 0.7. C-reactive protein is greater than 15. Urinalysis is noted and serology is noted. HIV is negative. Hepatitis profile is negative. Influenza is negative. Microbiology is pending. The patient had a CAT scan of the abdomen and pelvis and CAT scan of the chest. The results of the abdomen and pelvis CAT scan has a marked enlarged fibroid uterus and splenic lesion indeterminate and incidental findings are so noted, and the patient had a CAT scan of the chest, no evidence of pulmonary emboli is noted and echo results are pending. Dr. Butler's report is noted regarding anemia workup. The patient does have a retic count of 0.3, with a low MCV, anemia. Chest x-ray is negative. Pelvic x-ray is negative. ASSESSMENT AND PLAN: A 46-year-old female with history of hypertension, fibroids, presenting with bilateral inner thigh and pelvic groin area pain. The perineal area on a close examination with the nurse does not appear to have any evidence of infection. Etiology of this fever and pain is not clear with a negative CAT scan. We will check on the culture results; blood cultures, urine cultures are pending, and currently the patient is empirically started on Flagyl and vancomycin and Zosyn. Dopplers of the lower extremities are pending. The echo is pending. The patient is also scheduled for an MRI of the abdomen and pelvis and spine. We will follow closely with you with a sed rate of 45, C-reactive protein elevated. We will follow with you and make further recommendations. Ilan Marion MD
[2017-01-28] MEDS: Potassium Chloride 20 mEq ER Tab PO SCH (08:16)
[2017-01-28] MEDS ORDERED: HYDROmorphone 1 mg/ml ISec IVP ONE (08:49)
--- NOTE | 2017-01-28 09:19 | CON ---
DATE: 01/27/2017 GASTROENTEROLOGY CONSULTATION REQUESTING PHYSICIAN: Dr. Conti REASON FOR CONSULTATION: I have been asked to see this 46-year-old female with known history of hypertension, uterine fibroids, chronic anemia, who comes to the hospital with worsening thigh pain, left greater than right. The patient states that the pain is in the proximal medial aspect of her thighs. The patient denies any nausea, vomiting, abdominal pain, rectal bleeding or melena. The patient states that she has had heavy periods in the past, but has not had any heavy periods recently. The patient was prescribed iron replacement, but has not taken iron recently. She denies any trauma to her hips or legs. CT scan of the abdomen and pelvis revealed a markedly enlarged uterus with a small hypodense abnormality in the spleen. There is also prominence of the gonadal vein. PAST MEDICAL HISTORY: Notable for hypertension, uterine fibroids, chronic anemia. PAST SURGICAL HISTORY: Unremarkable. SOCIAL HISTORY: She denies recent cigarette smoking. She consumes alcohol socially. REVIEW OF SYSTEMS: A 14-point review of systems is notable for thigh pain, left greater than right. MEDICATIONS: At home include, metoprolol, ibuprofen, and cyclobenzaprine. PHYSICAL EXAMINATION: GENERAL: Well-developed female, lying in bed, in no acute distress. VITAL SIGNS: Reveal temperature of 98.7, blood pressure 174/95, heart rate of 83. HEENT: Reveals sclerae to be white. Conjunctiva pale. NECK: Supple. CHEST: Revealed lungs to be clear. HEART: Reveals regular rate and rhythm. ABDOMEN: Demonstrates a large mass occupying the entire abdomen. She also has an umbilical hernia. EXTREMITIES: Show no edema. LABORATORY DATA: Revealed white blood cell count 6.1, hemoglobin 7.5. Chemistries revealed potassium of 3.3. AST, ALT, and alkaline phosphatase were all normal. PT 13.9, INR 1.27. Serology showed negative HIV antigen antibody. CT scan of the abdomen and pelvis again revealed a 1.3 x 1.5 hypodense lesion in the spleen, indeterminate by CT criteria. A large lobulated uterus measuring 28 x 19 x 24 cm with scattered coarse calcifications. IMPRESSION: 1. Anemia, most likely secondary to chronic menstrual blood loss with a markedly enlarged uterus with a myoma measuring 28 x 19 x 24 cm and underlying uterine cancer must be ruled out. There are also dilated gonadal veins with compressed inferior vena cava noted, probably related to the large uterine myoma. 2. Thigh pain, etiology unclear. RECOMMENDATIONS: 1. Continue iron replacement. 2. SKILLED HELPER evaluation for evaluation of the enlarged uterine mass. 3. Check CA-125 level. Alec Donald MD
[2017-01-28] MEDS: Vancomycin 1gm in NS 250ml 1 GM/250 ML BAG IVPB SCH ×2 (11:42→22:02)
[2017-01-28] MEDS ORDERED: HYDROmorphone 0.5 mg/0.5 ml ISec IVP PRN (11:53)
--- NOTE | 2017-01-28 13:32 | CT ---
PROCEDURE: CT Pelvis without contrast HISTORY: PELVIC /GROIN PAIN COMPARISON: CT of the abdomen and pelvis dated 01/26/2017 TECHNIQUE: Contiguous axial images of the pelvis . No intravenous or oral contrast given. Coronal and sagittal reformats generated. Radiation dose: Total exam DLP = 580 mGy-cm. This CT exam was performed using one or more of the following dose reduction techniques: Automated exposure control, adjustment of the mA and/or kV according to patient size, and/or use of iterative reconstruction technique. FINDINGS: As seen on the recent CT of the abdomen and pelvis there is a large solid mass that essentially fills the pelvis and extends into the upper abdomen. This is consistent with a massively enlarged fibroid uterus. The mass was better evaluated on the recent study which also included the abdomen. Please see that report. There are no bony abnormalities seen in the pelvis IMPRESSION: As seen on the recent CT of the abdomen and pelvis there is a large solid mass that essentially fills the pelvis and extends into the upper abdomen. This is consistent with a massively enlarged fibroid uterus
--- NOTE | 2017-01-28 13:55 | PN ---
DATE: SUBJECTIVE: The patient is sitting on the bed, in no acute distress, still complains of pain in her groin area whenever she tries to walk. Denies any focal weakness in arms or legs. Denies any low back pain. PHYSICAL EXAMINATION: VITAL SIGNS: Her blood pressure is 174/111. Heart rate is 82 per minute, breathing at a rate of 16 per minute. Temperature is 98.4 degrees Fahrenheit. HEENT: Normocephalic and atraumatic. NECK: Supple. There are no carotid bruits. LUNGS: Clear. CARDIOVASCULAR: S1 and S2 audible. No murmurs. ABDOMEN: Soft and nontender. Bowel sounds are present. NEUROLOGY: Mental status: The patient is awake, alert, oriented to time, place, and person. Speech is fluent. Naming and repetition is normal. Memory and cognition are intact. Cranial nerves examination; pupils are 3 mm bilaterally reactive to light. Visual shahid are full. Extraocular movements are intact. There is no facial asymmetry. Palate is upgoing bilaterally. Tongue is midline. Motor examination; tone is normal. Power is 5/5 bilaterally in all extremities. Reflexes are +2 and symmetrical. Plantar is downgoing bilaterally. IMPRESSION: Bilateral groin pain, which appears to be secondary to musculoskeletal in origin. RECOMMENDATIONS: 1. The patient may continue tramadol and/or nonsteroidal antiinflammatory drugs as needed. 2. The patient's blood pressure needs to be better controlled. 3. The patient to have physical therapy evaluation. 4. Consider giving the patient steroids for a few days if there is inflammation of the symphysis pubis joint. 5. Please continue other treatments and supportive care. Thank you for the opportunity to participate in the care of this patient. Leigh Ann Saunders MD
[2017-01-28] MEDS ORDERED: DiphenhydrAMINE 50 mg/ml Inj IM ONE (14:00)
--- NOTE | 2017-01-28 15:41 | PN ---
DATE: 01/28/2017 SUBJECTIVE: The patient is sitting up in bed comfortable. She denies any abdominal pain, nausea, vomiting or rectal bleeding. PHYSICAL EXAMINATION: VITAL SIGNS: Reveal temperature of 98.4, blood pressure 174/111, heart rate of 82. HEENT: Reveals sclerae to be white. Conjunctivae pale. NECK: Supple. CHEST: Lungs are clear. HEART: Reveals a regular rate and rhythm. ABDOMEN: Soft. She has a large palpable mass throughout her abdomen and pelvis. It is nontender. EXTREMITIES: Show no edema. LABORATORY DATA: Reveal hemoglobin of 8.2, white blood cell count of 6.8, hematocrit of 28.5, and retic count 0.3. Chemistries are normal. CURRENT MEDICATIONS: Include hydralazine 10 mg IV q.6h. as needed, Cozaar 100 mg p.o. daily, Flagyl 500 mg IV q.8h., Venofer 200 mg IV daily, metoprolol 50 mg daily, pantoprazole 40 mg daily, Zosyn 3.375 g IV q.6h., acetaminophen and tramadol as needed for pain. Her blood cultures are positive for gram-positive cocci. IMPRESSION: 1. Severe anemia, most likely secondary to chronic blood loss from heavy menses. 2. Large uterine mass, most likely uterine myoma, but must rule out uterine cancer. 3. Gram-positive cocci sepsis. RECOMMENDATIONS: 1. Continue IV antibiotics as per Infectious Disease. 2. Awaiting CA-125 level. 3. Awaiting gynecologic evaluation. Alec Donald MD
--- NOTE | 2017-01-28 16:54 | CP.PCM.PN ---
Subjective - Date & Time of Evaluation Date of Evaluation: 01/28/17 Time of Evaluation: 10:55 - Subjective Subjective: No fevers, not in distress, afebrile. Objective - Vital Signs/Intake and Output Vital Signs (last 24 hours): Temp Pulse Resp BP Pulse Ox 98.4 F 86 18 181/106 H 99 01/28/17 06:00 01/28/17 10:08 01/28/17 06:00 01/28/17 10:08 01/28/17 06:00 Intake and Output: 01/28/17 01/28/17 06:59 18:59 Intake Total 240 Output Total 0 Balance 240 - Medications Medications: Current Medications Acetaminophen (Tylenol 325mg Tab) 650 mg PO Q6H PRN PRN Reason: FOR TEMP>=99.5F Acetaminophen (Tylenol 650 Mg Supp) 650 mg RC Q4H PRN PRN Reason: FOR TEMP>=99.5F Hydralazine HCl (Apresoline) 10 mg IVP Q6 PRN PRN Reason: FOR SBP>=170&/ORDBP>=100 [facility] Last Admin: 01/28/17 10:08 Dose: 10 mg Metronidazole (Flagyl) 500 mg in 100 mls @ 100 mls/hr IVPB Q8 [facility] PRN Reason: Protocol Last Admin: 01/28/17 06:00 Dose: 100 mls/hr Piperacillin Sod/Tazobactam Sod (Zosyn 3.375 In Ns 100ml) 100 mls @ 200 mls/hr IVPB Q6 [facility] PRN Reason: Protocol Stop: 02/02/17 18:01 Last Admin: 01/28/17 06:10 Dose: 200 mls/hr Iron Sucrose 200 mg/ Sodium (Chloride) 110 mls @ 110 mls/hr IVPB DAILY [facility] Stop: 02/01/17 22:01 Last Admin: 01/28/17 10:06 Dose: 110 mls/hr Sodium Chloride (Sodium Chloride 0.9%) 1,000 mls @ 60 mls/hr IV .[id number] [facility] Last Admin: 01/27/17 09:12 Dose: 60 mls/hr Vancomycin HCl (Vancomycin 1gm) 250 mls @ 167 mls/hr IVPB Q12H [facility] PRN Reason: Protocol Losartan Potassium (Cozaar) 100 mg PO DAILY [facility] Last Admin: 01/28/17 10:06 Dose: 100 mg Metoprolol Tartrate (Lopressor) 50 mg PO DAILY [facility] Last Admin: 01/28/17 10:06 Dose: 50 mg Pantoprazole Sodium (Protonix Ec Tab) 40 mg PO 0600,1600 [facility] Last Admin: 01/28/17 06:00 Dose: Not Given Potassium Chloride (K-Dur 20 Meq Er Tab) 20 meq PO BRK [facility] Last Admin: 01/28/17 08:16 Dose: 20 meq Tramadol HCl (Ultram) 50 mg PO Q8 [facility] Last Admin: 01/28/17 06:00 Dose: 50 mg - Labs Labs: 01/28/17 05:30 01/28/17 05:30 PT 13.9 SECONDS (9.4-12.5) H 01/26/17 15:00 INR 1.27 (0.93-1.08) H 01/26/17 15:00 APTT 30.2 Seconds (25.1-36.5) 01/27/17 18:00 - Constitutional Appears: Non-toxic, No Acute Distress - Head Exam Head Exam: NORMAL INSPECTION - ENT Exam ENT Exam: Mucous Membranes Moist - Neck Exam Neck Exam: absent: Meningismus - Respiratory Exam Respiratory Exam: Decreased Breath Sounds - Cardiovascular Exam Cardiovascular Exam: +S1, +S2 - GI/Abdominal Exam GI & Abdominal Exam: Soft. absent: Tenderness Assessment and Plan - Assessment and Plan (Free Text) Plan: Assessment Sepsis due to gram positive cocci in chains bacteremia, source to be determined , R/O intra-abdominal infection splenic lesion, etiology to be determined HTN history of uterine fibroids S/P Plan Continue Vancomycin, Zosyn pending identification and sensitivities of the bacteria in the blood; will repeat blood cx tomorrow; follow up 2D echo follow up MRI abdomen will monitor clinically
--- NOTE | 2017-01-28 22:36 | CP.PCM.PN ---
Subjective - Date & Time of Evaluation Date of Evaluation: 01/28/17 Time of Evaluation: 19:55 - Subjective Subjective: Has some inner thigh pain but improved Objective - Vital Signs/Intake and Output Vital Signs (last 24 hours): Temp Pulse Resp BP Pulse Ox 98.2 F 72 20 160/80 H 99 01/28/17 20:47 01/28/17 20:47 01/28/17 20:47 01/28/17 20:47 01/28/17 06:00 Intake and Output: 01/28/17 01/29/17 18:59 06:59 Intake Total 1030 Balance 1030 - Medications Medications: Current Medications Acetaminophen (Tylenol 325mg Tab) 650 mg PO Q6H PRN PRN Reason: FOR TEMP>=99.5F Acetaminophen (Tylenol 650 Mg Supp) 650 mg RC Q4H PRN PRN Reason: FOR TEMP>=99.5F Hydralazine HCl (Apresoline) 10 mg IVP Q6 PRN PRN Reason: FOR SBP>=170&/ORDBP>=100 [facility] Last Admin: 01/28/17 10:08 Dose: 10 mg Hydromorphone HCl (Dilaudid) 0.5 mg IVP Q4H PRN PRN Reason: Pain, moderate (4-7) Piperacillin Sod/Tazobactam Sod (Zosyn 3.375 In Ns 100ml) 100 mls @ 200 mls/hr IVPB Q6 [facility] PRN Reason: Protocol Stop: 02/02/17 18:01 Last Admin: 01/28/17 18:20 Dose: 200 mls/hr Iron Sucrose 200 mg/ Sodium (Chloride) 110 mls @ 110 mls/hr IVPB DAILY [facility] Stop: 02/01/17 22:01 Last Admin: 01/28/17 10:06 Dose: 110 mls/hr Sodium Chloride (Sodium Chloride 0.9%) 1,000 mls @ 60 mls/hr IV .[id number] [facility] Last Admin: 01/27/17 09:12 Dose: 60 mls/hr Vancomycin HCl (Vancomycin 1gm) 1 gm in 250 mls @ 167 mls/hr IVPB Q12H [facility] PRN Reason: Protocol Last Admin: 01/28/17 22:02 Dose: 167 mls/hr Losartan Potassium (Cozaar) 100 mg PO DAILY [facility] Last Admin: 12/08/17 10:06 Dose: 100 mg Metoprolol Tartrate (Lopressor) 50 mg PO DAILY [facility] Last Admin: 01/28/17 10:06 Dose: 50 mg Metronidazole (Flagyl) 500 mg PO Q8 [facility] Last Admin: 01/28/17 21:51 Dose: 500 mg Pantoprazole Sodium (Protonix Ec Tab) 40 mg PO 0600,1600 [facility] Last Admin: 01/28/17 16:47 Dose: 40 mg Potassium Chloride (K-Dur 20 Meq Er Tab) 20 meq PO BRK [facility] Last Admin: 01/28/17 08:16 Dose: 20 meq Tramadol HCl (Ultram) 50 mg PO Q8 [facility] Last Admin: 01/28/17 14:21 Dose: 50 mg - Labs Labs: 01/28/17 05:30 01/28/17 05:30 PT 13.9 SECONDS (9.4-12.5) H 01/26/17 15:00 INR 1.27 (0.93-1.08) H 01/26/17 15:00 APTT 30.2 Seconds (25.1-36.5) 01/27/17 18:00 - Head Exam Head Exam: ATRAUMATIC - Eye Exam Eye Exam: Normal appearance - ENT Exam ENT Exam: Mucous Membranes Dry - Respiratory Exam Respiratory Exam: NORMAL BREATHING PATTERN - Cardiovascular Exam Cardiovascular Exam: +S1, +S2 - GI/Abdominal Exam GI & Abdominal Exam: Normal Bowel Sounds - Extremities Exam Extremities Exam: Normal Inspection Assessment and Plan (1) Anemia Assessment & Plan: iron deficiency; uterine fibroids noted PROPOSAL SPECIALIST f/u s/p PRBC transfusion s/p Venofer Status: Acute (2) Splenic lesion Assessment & Plan: MRI for further characterization Status: Acute
[2017-01-29] MEDS: Piperacillin/Tazobact 3.375 gm 100 ML IVPB SCH ×4 (00:15→17:43)
--- NOTE | 2017-01-29 00:46 | PN ---
DATE: 01/28/2017 LOCATION: The patient was seen with the patient's nurse in room 374, bed 1. SUBJECTIVE: The patient was still complaining of pubic area pain and groin pain. The patient is complaining of difficulty walking. This morning, the patient was unable to do MRI because of claustrophobia. The patient was then rescheduled for MRI with premedications with Ativan and Benadryl, still the patient refused the MRI despite my reinforcement. Also, the patient was ordered a CAT scan of the hips and pelvis, which also the patient did not complete and only did partial study. According to the nurse, the patient felt hot and flushed, though the CAT scan was done without contrast and the patient refused to complete the CAT scan study. Despite my reinforcement and the nurse's reinforcement, the patient was able to stand up with assistance. The patient complained of pain upon walking in the groin and pelvic area. Overnight nurse's notes were reviewed. OBJECTIVE: VITAL SIGNS: T-max is 98.6. Pulse 76 to 82 to 85. Blood pressure in the last 24 hours 162/90, 153/91, 181/108, 177/90, 176/108, 174/111, 181/106, 141/91, 150/87, 151/97, 145/87. Respirations 18 to 20, O2 sat is 97%, 98%, 100%. HEAD: Normocephalic, atraumatic. HEENT: Shows pinkish pale conjunctivae. Anicteric sclerae. No oropharyngeal lesion. No neck rigidity. CHEST: Kyphosis. LUNGS: Show no rales, crackles, or wheezing. CARDIOVASCULAR: S1, S2, regular rhythm. Questionable soft systolic murmur in left sternal border. Right second intercostal space. ABDOMEN: Diffusely distended. Abdomen with firm and hard abdomen. No costovertebral angle tenderness. Positive bilateral inguinal area tenderness. GENITALIA: Female. RECTAL: Deferred. EXTREMITY: Shows no pitting edema, no calf numbness, no Homans signs. NEUROLOGIC: The patient is alert, awake, oriented x3. The patient still does not make eye contact when the patient is being spoken to and addressed. The patient still avoids making eye contact. MUSCULOSKELETAL: Shows a body mass index of 31. PSYCHIATRIC: Negative. DIAGNOSTICS: 01/28/2017, WBC 6.8, hemoglobin and hematocrit 8.2 and 28.5, MCV 70, platelet 297. Granulocytes, 77% segs. The patient received only 1 unit of PRBC despite 2 units ordered. Sodium 138, potassium 3.7 which is low normal, chloride 104, CO2 25, anion gap 13, BUN 9, creatinine 0.7, GFR greater than 60, glucose 92, calcium 8.6, magnesium 2.0. LFTs are normal. CA-125 antigen ordered by Gastroenterology was 40.7, which is slightly elevated. Urine culture, Gram-positive cocci. Blood cultures, Gram-positive cocci. Repeat blood and repeat urine culture ordered. The patient was ordered to undergo a CT of the pelvis and the hips for evaluation of the groin and inguinal area pain. The patient only did pelvic CT which shows large solid mass filling the pelvis, extends into the upper abdomen consistent with massively enlarged fibroid uterus. No other bony abnormalities were noted. The patient was seen by Orthopedics. Orthopedic consult was ordered. The patient was seen by Gastroenterology, Neurology, and Infectious Disease. IMPRESSION AND PLAN: 1. Gram-positive cocci bacteremia and sepsis, etiology undetermined. 2. Gram-positive cocci in chains bacteremia and sepsis, etiology undetermined. 3. Gram-positive cocci urinary tract infection. 4. Questionable uncontrolled accelerated hypertension. 5. History of hypertension. 6. Microcytic anemia. 7. Elevated erythrocyte sedimentation rate. 8. Elevated D-dimer of greater than 1000, etiology undetermined. 9. Hypokalemia. 10. Iron deficiency microcytic anemia with decreased iron, decreased iron saturation, and decreased low ferritin level. 11. Elevated C-reactive protein of greater than 15. 12. Hyperprocalcitonemia. 13. Gram-positive cocci urinary tract infection with proteinuria. 14. Status post 1 unit of packed red blood cell transfusion. 15. Massively enlarged fibroid uterus extending into the upper abdomen. 16. Hypertensive cardiovascular disease with left ventricle ejection fraction of 64% with grade 3 reversible restrictive diastolic dysfunction. 17. Borderline dilated left atrium. 18. Thickened aortic valve with moderately sclerotic aortic valve with aortic sclerosis versus mild aortic stenosis. 19. Thickened mitral valve and mitral annular calcification with mild mitral regurgitation. 20. Thickened tricuspid leaflet, mild tricuspid regurgitation, and right ventricular systolic pressure of 38 mmHg. 21. Trace pulmonic regurgitation. 22. Deconditioning. 23. Gait dysfunction. 24. Poor compliance and noncompliance. 25. Sepsis and bacteremia due to Gram-positive cocci in chains bacteremia, etiology undetermined. 26. Severe anemia secondary to chronic blood loss from menorrhagia and uterine fibroid. 27. Elevated CA-125 antigen level of 40.7 which is very slightly elevated. The patient has been ordered repeat laboratories, repeat blood and urine cultures. CURRENT CONSULTATION: 1. Gastroenterology. 2. Hematology/Oncology. 3. Infectious Disease. 4. Neurology. 5. Gynecology and Orthopedics. The patient is seen by Hematology/Oncology. Their recommendations were noted. The patient is on hydralazine 10 mg IV q.6 p.r.n. The patient was given premedications. The patient is on Cozaar 100 mg daily, Dilaudid started at 0.5 mg IV q.4 p.r.n., Flagyl 500 p.o. q.8. Venofer 200 mg IV daily by Dr. Butler. The patient is ordered potassium 20 mEq p.o. daily, Lopressor 50 mg daily, Protonix 40 mg twice a day. The patient is on IV fluid 0.9 at 60 mL an hour, Tylenol suppository q.6 p.r.n., Ultram 50 mg q.8 hours, vancomycin 1 gm IV q.12, Zosyn 3.375 gm IV q.6. The patient has been ordered out of bed, JASS stockings, SCDs. Transfusion of PRBC, physical therapy, occupational therapy, ambulation therapy ordered. The patient was seen by physical therapist today. Their recommendations are that the patient to TCU or home when goals are met. The patient is still awaiting [facility] evaluation. At present, the patient's further management will be dependent upon the patient's clinical condition, hemodynamic status, and as per the patient's response to therapeutic intervention, as per the patient's diagnostic test results, and as per further recommendation. Dictated and electronically signed, not read. Sundeep Conti MD
--- NOTE | 2017-01-29 02:15 | CON ---
DATE: 01/28/2017 INPATIENT CONSULT REASON FOR CONSULTATION: Bilateral groin pain. HISTORY OF PRESENT ILLNESS: Consult is as follows: This is a 46-year-old female who is admitted for possible sepsis and lower extremity pain. The patient denies history of any trauma. She says that the pain started last Tuesday, and it has not subsided. She states she is able to move both her hips without any significant pain, but when she starts weightbearing, she has pain. Since her admission, she was diagnosed with a urinary tract infection, is currently on multi-antibiotic regimen. She denies any numbness or tingling going down her legs. She denies any back pain. She denies any pain along her flanks. PHYSICAL EXAMINATION: GENERAL: This is a female, in no apparent distress. She is awake, alert, and oriented x3. NEUROLOGICAL: She is neurologically intact in bilateral lower extremities. She is able to do a straight leg raise bilaterally without any pain. She has no pain with passive internal rotation of either hip. She has no significant pain with axial load of either hip. Her thighs and calves are soft and nontender. No obvious deformity is appreciated. She has palpable distal pulses. Bilateral knees showed no obvious effusions. She is tolerating full active range of motion of the knees without any pain. She is nontender along the lumbosacral spine, has no tenderness in the retroperitoneal region. LABORATORY DATA: She had an AP pelvis. AP pelvis showed no acute fractures or dislocations. Her joint spaces appeared to be well maintained. She also had a CT of the abdomen and pelvis, which showed no acute bony abnormalities. IMPRESSION: Bilateral groin pain. PLAN: At this point, this may be secondary to her history of fibroids and her UTI versus a muscle strain. For now, she is scheduled to have an MRI of her pelvis. We are going to await those results. We are going to let her weightbear as tolerated. I will follow up once the MRI is done. Umang De La Torre MD
[2017-01-29] MEDS: Pantoprazole 40 mg EC Tab PO SCH ×4 (05:27→19:44)
[2017-01-29 08:03] LABS: BASO # 0.03 K/mm3 (0.0-2.0); BASO % 0.3 % (0.0-3.0); EOS # 0.1 (0.0-0.7); EOS % 1.1 % (1.5-5.0); GRAN # 7.8 (1.4-6.5); GRAN % 85.4 % (50.0-68.0); HEMATOCRIT 33.6 % (36.0-48.0); LYMPH # 0.7 (1.2-3.4); LYMPH % 7.3 % (22.0-35.0); MEAN CELL VOLUME 71.8 fl (80.0-105.0); MEAN CORPUSCULAR HEMOGLOBIN 21.8 pg (25.0-35.0); MEAN CORPUSCULAR HGB CONC 30.4 g/dl (31.0-37.0); MEAN PLATELET VOLUME 10.2 fl (7.0-11.0); MONO # 0.5 (0.1-0.6); MONO % 5.9 % (1.0-6.0); RED CELL DISTRIBUTION WIDTH 19.1 % (11.5-14.5); WHITE BLOOD COUNT 9.1 10^3/ul (4.5-11.0)
[2017-01-29 08:35] LABS: ALKALINE PHOSPHATASE 79 U/L (38-126); ALT/SGPT 24 U/L (7-56); AST/SGOT 24 U/L (14-36); BILIRUBIN,DIRECT 0.4 mg/dL (0.0-0.4); BILIRUBIN,TOTAL 0.8 mg/dL (0.2-1.3); BLOOD UREA NITROGEN 6 mg/dL (7-21); CALCIUM 8.7 mg/dL (8.4-10.5); CARBON DIOXIDE 23 mmol/L (21-33); CHLORIDE 103 mmol/L (98-107); GFR AFRICAN-AMERICAN > 60; GLUCOSE,RANDOM 98 mg/dL (70-110); MAGNESIUM 1.9 mg/dL (1.7-2.2); POTASSIUM 3.2 mmol/L (3.6-5.0); SODIUM 137 mmol/L (132-148); TOTAL PROTEIN 7.1 g/dL (5.8-8.3)
[2017-01-29] MEDS: Potassium Chloride 20 mEq ER Tab PO SCH (08:39)
[2017-01-29] MEDS ORDERED: Potassium Chloride 20 mEq ER Tab PO ONE (08:55)
--- NOTE | 2017-01-29 12:08 | PN ---
DATE: LOCATION: The patient is in the [facility] in [place], room 374, bed 1. SUBJECTIVE: She was admitted after assessment in the emergency room with severe pain in the left groin area, which needed further evaluation and treatment. She has history of carrying a massive fibroid according to her history. She is apparently not consented to surgery over many, many years. She has had given to 2 children. Currently, she is complaining of pain, but there is no evidence of any abscess clinically. The patient has past history of hypertension. The patient has history of anemia. PHYSICAL EXAMINATION: VITAL SIGNS: Pulse is 91, blood pressure 196/110, which decreased to 116/98 after the patient settled down. HEENT: Head is normocephalic. NECK: The thyroid is not clinically enlarged. JVP is flat. LUNGS: Trachea is central. Breath sounds are vesicular. No adventitious sounds. ABDOMEN: Soft. There is massive hard mass present in the abdomen occupying the entire volume of the abdomen, and the patient admits to having this for many years. The patient has no menstrual period at this time. CENTRAL NERVOUS SYSTEM: There is no focal neurological deficits noted. The patient is able to ambulate, but she states that she has been finding it very difficult in the recent week. 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 MEDICATIONS: The patient's medications consists of hydralazine 10 mg p.r.n., as needed for elevated blood pressure. The patient is on losartan 100 mg daily. The patient is on Dilaudid 0.5 mg IV q. 4 hours p.r.n. for pain, which is hydromorphone. The patient is on 500 mg of Flagyl q. 8 hours. The patient had infusion of Venofer for replacement of iron. The patient is on metoprolol 50 mg daily and pantoprazole 40 mg daily. IMPRESSION AND PLAN: The patient's evaluation of the leg, the MRI and CAT scan were ordered, but these are not completed at this time. The patient seemed reasonably comfortable lying in bed and she is medicated. Her diet is heart-healthy diet. The patient's evaluation continues, current management will follow. We will have the patient seen by the supervisor scenic arts while she is in the hospital. The question of some pressure on the lower extremity neurovascular system is possible because of the large fibroid pressing on the structures of the abdominal content. Fanny Verduzco MD
--- NOTE | 2017-01-29 12:09 | CP.PCM.CON ---
History of Present Illness - History of Present Illness History of Present Illness: 46 yo female admitted to [facility] for lower extremity discomfort. Pt found to have acute anemia. Pt with long h/o fibroid uterus. At this time, pt denies abd pain, N/V, D/C, vaginal bleeding, F/C, CP/SoB. Pt reports 20yr h/o fibroid uterus. Pt states that size of uterus has increased gradually over past 5-8 years. Pt denies any abnormal paps. Last pap 2yrs ago. Past Patient History - Infectious Disease Hx of Infectious Diseases: None - Past Social History Smoking Status: Former Smoker - CARDIAC Hx Cardiac Disorders: Yes Hx Hypertension: Yes - PULMONARY Hx Bronchitis: Yes - NEUROLOGICAL Hx Neurological Disorder: No - HEENT Hx HEENT Problems: No - RENAL Hx Chronic Kidney Disease: No - ENDOCRINE/METABOLIC Hx Endocrine Disorders: No - HEMATOLOGICAL/ONCOLOGICAL Hx Blood Disorders: No - INTEGUMENTARY Hx Dermatological Problems: Yes Other/Comment: tatoo - MUSCULOSKELETAL/RHEUMATOLOGICAL Hx Falls: No - GASTROINTESTINAL Hx Gastrointestinal Disorders: No - GENITOURINARY/GYNECOLOGICAL Hx Genitourinary Disorders: No - PSYCHIATRIC Hx Substance Use: No - SURGICAL HISTORY Hx Surgeries: Yes (c sections x 2) - ANESTHESIA Hx Anesthesia: Yes Hx Anesthesia Reactions: No Hx Malignant Hyperthermia: No Meds Allergies/Adverse Reactions: Allergies Allergy/AdvReac Type Severity Reaction Status Date / Time No Known Allergies Allergy Verified 01/26/17 14:14 - Medications Medications: Current Medications Acetaminophen (Tylenol 325mg Tab) 650 mg PO Q6H PRN PRN Reason: FOR TEMP>=99.5F Acetaminophen (Tylenol 650 Mg Supp) 650 mg RC Q4H PRN PRN Reason: FOR TEMP>=99.5F Amlodipine Besylate (Norvasc) 5 mg PO DAILY [facility] Clonidine HCl (Catapres) 0.1 mg PO PRN PRN PRN Reason: Diastolic blood pressure Hydromorphone HCl (Dilaudid) 0.5 mg IVP Q4H PRN PRN Reason: Pain, moderate (4-7) Piperacillin Sod/Tazobactam Sod (Zosyn 3.375 In Ns 100ml) 100 mls @ 200 mls/hr IVPB Q6 [facility] PRN Reason: Protocol Stop: 02/02/17 18:01 Last Admin: 01/29/17 05:21 Dose: 200 mls/hr Iron Sucrose 200 mg/ Sodium (Chloride) 110 mls @ 110 mls/hr IVPB DAILY [facility] Stop: 02/01/17 22:01 Last Admin: 01/29/17 09:27 Dose: 110 mls/hr Sodium Chloride (Sodium Chloride 0.9%) 1,000 mls @ 60 mls/hr IV .[id number] [facility] Last Admin: 01/27/17 09:12 Dose: 60 mls/hr Vancomycin HCl (Vancomycin 1gm) 1 gm in 250 mls @ 167 mls/hr IVPB Q12H [facility] PRN Reason: Protocol Last Admin: 01/28/17 22:02 Dose: 167 mls/hr Metoprolol Tartrate (Lopressor) 50 mg PO DAILY [facility] Last Admin: 01/29/17 09:18 Dose: Not Given Metronidazole (Flagyl) 500 mg PO Q8 [facility] Last Admin: 01/29/17 05:26 Dose: 500 mg Pantoprazole Sodium (Protonix Ec Tab) 40 mg PO 0600,1600 [facility] Last Admin: 01/29/17 06:52 Dose: Not Given Potassium Chloride (K-Dur 20 Meq Er Tab) 20 meq PO BRK [facility] Last Admin: 01/29/17 08:39 Dose: 20 meq Tramadol HCl (Ultram) 50 mg PO Q8 [facility] Last Admin: 01/29/17 05:27 Dose: 50 mg Valsartan (Diovan) 320 mg PO DAILY [facility] Physical Exam - Constitutional Appears: Well, No Acute Distress - Head Exam Head Exam: ATRAUMATIC - Eye Exam Eye Exam: Normal appearance - ENT Exam ENT Exam: Mucous Membranes Moist - GI/Abdominal Exam Additional comments: +solid mass consuming most of abdomen c/w markedly enlarged fibroid uterus. Nontender. No rebound, no gaurding, Results - Vital Signs Recent Vital Signs: Last Vital Signs Temp 98.7 F 01/29/17 06:00 Pulse 91 H 01/29/17 06:00 Resp 20 01/29/17 06:00 BP 168/98 H 01/29/17 06:51 Pulse Ox 98 01/29/17 06:00 - Labs Result Diagrams: 01/29/17 07:25 01/29/17 07:25 Labs: Laboratory Results - last 24 hr 01/26/17 01/28/17 01/29/17 20:40 05:30 07:25 WBC 9.1 D RBC 4.68 Hgb 10.2 L D Hct 33.6 L MCV 71.8 L MCH 21.8 L MCHC 30.4 L RDW 19.1 H Plt Count 314 MPV 10.2 Gran % 85.4 H Lymph % (Auto) 7.3 L Clark % (Auto) 5.9 Eos % (Auto) 1.1 L Baso % (Auto) 0.3 Gran # 7.80 H Lymph # 0.7 L Clark # 0.5 Eos # 0.1 Baso # 0.03 Sodium Potassium Chloride Carbon Dioxide Anion Gap BUN Creatinine Est GFR ( Amer) Est GFR (Non-Af Amer) Random Glucose Calcium Magnesium Total Bilirubin Direct Bilirubin AST ALT Alkaline Phosphatase Total Protein Albumin Globulin Albumin/Globulin Ratio CA 125 Antigen 40.7 H Blood Type AB POSITIVE Antibody Screen Negative Crossmatch See Detail BBK History Checked No verified bt 01/29/17 07:25 WBC RBC Hgb Hct MCV MCH MCHC RDW Plt Count MPV Gran % Lymph % (Auto) Clark % (Auto) Eos % (Auto) Baso % (Auto) Gran # Lymph # Clark # Eos # Baso # Sodium 137 Potassium 3.2 L Chloride 103 Carbon Dioxide 23 Anion Gap 14 BUN 6 L Creatinine 0.6 L Est GFR ( Amer) > 60 Est GFR (Non-Af Amer) > 60 Random Glucose 98 Calcium 8.7 Magnesium 1.9 Total Bilirubin 0.8 Direct Bilirubin 0.4 AST 24 ALT 24 Alkaline Phosphatase 79 Total Protein 7.1 Albumin 3.6 Globulin 3.5 Albumin/Globulin Ratio 1.0 L CA 125 Antigen Blood Type Antibody Screen Crossmatch BBK History Checked - Imaging and Cardiology CT scan - pelvis Status: Report reviewed by me Assessment & Plan - Assessment and Plan (Free Text) Assessment: Marked enlarged fibroid uterus. Acute anemia. Plan: I discussed with patient general info regarding uterine fibroids and options of treatment. Due to size of uterine fibroids, I discussed with patient that she will likely need a hysterectomy. I recommended to patient to F/U in office for pap, endometrial biopsy and likely scheduling of surgery. I discussed with patient that, based on her history and radiology findings, she appears to have a markedly enlarged fibroid uterus but a malignancy cannot be ruled out. No surgical intervention needed at this time due to patient's lack of pain or acute bleeding. I gave patient my contact information and she states she will followup in my office next week. - Date & Time Date: 01/29/17 Time: 12:15
[2017-01-29] MEDS: Vancomycin 1gm in NS 250ml 1 GM/250 ML BAG IVPB SCH ×2 (14:13→22:40)
--- NOTE | 2017-01-29 19:47 | CON ---
DATE: 01/29/2017 The patient admitted for Dr. Sundeep Conti. FAMILY PHYSICIAN: Dr. Cuate Craft REFERRING MD: Sundeep Conti MD REASON FOR CONSULTATION: Evaluation of the patient unknown to me, who presents with uncontrolled hypertension. HISTORY OF PRESENT ILLNESS: The patient is a 46-year-old female with a history of hypertension of 5 years duration, history of an enlarged uterus with an enlarged fibroid with heavy menstrual bleeding. 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 Past history of a . The patient presented to the hospital 3 days ago with low grade fevers and pain in the upper thigh and groin area. She was admitted to the hospital for evaluation. Subsequently, her urine cultures came back positive for beta-hemolytic strep group B and her blood cultures came back positive for staph aureus coag negative. The patient is on IV antibiotic therapy for treatment of these findings. Her blood pressure had been elevated throughout most of the hospitalization with systolic blood pressures running as high as the mid 180 range even into the 190 range this morning. Diastolics running from 90-110. The patient is asymptomatic. She has no headaches, dizziness or lightheadedness. No chest pain or shortness of breath or palpitations. The patient states that she has had no difficulty in controlling her blood pressure in the outpatient setting. She states she has had multiple adjustments in her blood pressure medication, but her blood pressures were always well controlled. Of note, the patient is also noted to have a mild hypokalemia with potassium is in the low to mid 3 range. Magnesium levels have been normal. We are asked to evaluate the patient to help control her blood pressure. In the outpatient setting, the patient had received Lopressor alone. During present hospitalization, the patient is receiving p.r.n. hydralazine along with start of losartan 1 day ago and she continues on beta-kira therapy. PAST MEDICAL HISTORY: Significant for hypertension, history of an enlarged uterus with fibroids with heavy menstrual bleeding. Past history of , history of anemia secondary to uterine bleeding. MEDICATIONS AT HOME: Include that of metoprolol, Motrin and cyclobenzaprine. ALLERGIES: THE PATIENT HAS NO KNOWN ALLERGIES. CURRENT MEDICATIONS: In hospital include that of hydralazine p.r.n., losartan, Dilaudid p.r.n., Flagyl, IV Venofer, potassium supplements, metoprolol, Protonix, and Tylenol p.r.n., Ultram p.r.n., IV vancomycin and Zosyn. SOCIAL HISTORY: No history of cigarette smoking. No history of alcohol use. FAMILY HISTORY: Father from a motor vehicle accident. Mother is alive, but has hypertension. REVIEW OF SYSTEMS GENERAL: The patient states appetite and weight have been stable. ENT: Denies any hearing or visual problems. PULMONARY: No history of COPD, shortness of breath, pneumonia, bronchitis, emphysema or asthma. CARDIAC: No history of ASHD. GI: No history of nausea, vomiting, diarrhea, constipation or abdominal pain. : No history of chronic kidney disease or UTIs. 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 ENDOCRINE: No history of diabetes. MUSCULOSKELETAL: Pain in her right upper thigh area as noted above. NEURO: No history of CVA, TIA, seizures or syncope. 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 No history of malignancy. PSYCHIATRIC HISTORY: Negative. PHYSICAL EXAMINATION GENERAL: The patient is currently seen on 3R, sitting up in bed. She appears to be in no acute distress. She is completely asymptomatic from her elevated blood pressure readings. VITAL SIGNS: Presently blood pressure is 168/98, temperature is 98.7, pulse is 91 with a respiratory rate of 20. Pulse ox of 98%. HEENT: Exam shows her be normocephalic, atraumatic. Conjunctivae are pale. Sclera are nonicteric. Pupils equal, reactive to light and accommodation. Extraocular muscles are intact. Posterior pharynx is normal. NECK: Supple. No neck vein distention or thyromegaly. No lymphadenopathy. No bruits. CHEST: Clear to auscultation and percussion. No rales, rhonchi or wheezing. CARDIOVASCULAR: Shows a regular rate and rhythm with MR/TR. No S3. No S4. No rub. ABDOMEN: Mildly distended. Positive fullness in the lower abdomen. No rebound or guarding. Bowel sounds are normal. BACK: No CVAT. No spinal tenderness. EXTREMITIES: Show no cyanosis, clubbing or edema. Distal lower extremity pulses are 2+ bilaterally. LABORATORY DATA AND IMAGING STUDIES: Abdominal and pelvic CT showed enlarged uterus with a large fibroid. She had a hypodense lesion in the spleen which was non characterized. Kidneys were normal. Adrenal glands were normal. Repeat pelvic CT showed a similar finding with an enlarged uterus and a large fibroid. Admitting chest x-ray showed cardiomegaly. Echocardiogram done shows ejection fraction of 64%. Mild concentric LVH, MR/TR. Questionable mild aortic stenosis, no pericardial effusion and no vegetations. Labs: CBC: White blood cell count normal, today it is 9.1, hemoglobin 10.2 with a platelet count of 314,000. Her hemoglobin was as low as 7.5 and the patient has received 2 units of packed red blood cells. Continuation; PT 13.9 with a PTT of 30.2, D-dimer was 1087. Chemistries; sodium 137, potassium 3.2, yesterday was 3.7. BUN 6 with a creatinine of 0.6. Glucose 98. Calcium 8.7, magnesium 1.9. Liver enzymes are normal. Albumin is 3.6. Urine showed white cells 5-10 where 2-5 white blood cell casts. 2+ protein. Hepatitis serologies were negative. HIV was negative. Influenza was negative. Microbiology: Urine cultures positive beta hemolytic strep group B, blood cultures positive for Staph aureus coag negative in one set of blood cultures. ASSESSMENT: 1. Uncontrolled hypertension. The patient currently is being maintained on p.r.n. IV hydralazine along with an angiotensin receptor kira and beta kira. The patient states that she has had hypertension for 5 years. She knows of no target organ disease, but her echocardiogram does show left ventricular hypertrophy and her urine does show some protein perhaps that is related to the urinary tract infection alone. The patient will need to have her blood pressure control better managed. It appears that beta-kira therapy alone will not maintain her. In the outpatient setting, we could measure the vascular resistance and perhaps I will see her in the outpatient setting if we have difficulty controlling her blood pressure in the hospital. I will add a calcium channel kira. I will add a longer acting angiotensin receptor kira. Perhaps combination therapy when the patient is discharged, she may remain on beta-kira therapy. I will use p.r.n. clonidine to help lower her blood pressure and discontinue IV hydralazine. 2. Anemia. This is likely secondary to HOME HOUSEKEEPER bleeding. The patient is receiving IV iron. She has received transfusions. We will try and keep her hemoglobin above 10. 3. History of an enlarged uterus with a large likely bleeding fibroid. The patient will need to discuss with her Food Service Agent the need to possibly have a hysterectomy. She had this discussion with her Food Service Agent in the past, but was reluctant to have surgery. 4. History of left ventricular hypertrophy with mild valvular heart disease, mitral regurgitation/tricuspid regurgitation with possible mild aortic stenosis. Likely the left ventricular hypertrophy is secondary to hypertension. 5. Positive urinary tract infection, positive bacteremia. The patient is continuing IV antibiotic therapy as per Infectious Disease consultation. PLAN: 1. Adjust her blood pressure medication as noted above. 2. Continue potassium supplements. It does not appear from looking in her abdominal CT scan that she has any enlargement of her adrenal gland, but the outpatient workup for primary hyperaldosteronism can be done electively once her acute situation stabilizes. 3. Continue to monitor labs on a close basis. 4. Supplement potassium accordingly. 5. Agree with keeping hemoglobin greater than 10. Agree with iron infusions and transfusions as necessary. Thank you for letting me partake and share in the care of your patient. Jason Ma MD
[2017-01-30] MEDS: Piperacillin/Tazobact 3.375 gm 100 ML IVPB SCH ×3 (00:12→14:42)
[2017-01-30] MEDS: Pantoprazole 40 mg EC Tab PO SCH ×2 (05:35→16:28)
[2017-01-30 07:57] LABS: ALB/GLOB RATIO 1.1 (1.1-1.8); ALKALINE PHOSPHATASE 73 U/L (38-126); ALT/SGPT 25 U/L (7-56); AST/SGOT 22 U/L (14-36); BILIRUBIN,DIRECT 0.4 mg/dL (0.0-0.4); BILIRUBIN,TOTAL 0.5 mg/dL (0.2-1.3); BLOOD UREA NITROGEN 6 mg/dL (7-21); CALCIUM 8.9 mg/dL (8.4-10.5); CARBON DIOXIDE 24 mmol/L (21-33); CHLORIDE 102 mmol/L (98-107); GFR AFRICAN-AMERICAN > 60; GLUCOSE,RANDOM 87 mg/dL (70-110); PHOSPHOROUS 3.1 mg/dL (2.5-4.5); POTASSIUM 3.5 mmol/L (3.6-5.0); SODIUM 138 mmol/L (132-148); TOTAL PROTEIN 7.3 g/dL (5.8-8.3)
[2017-01-30 08:07] LABS: BASO # 0.01 K/mm3 (0.0-2.0); BASO % 0.1 % (0.0-3.0); EOS # 0.1 (0.0-0.7); EOS % 1.1 % (1.5-5.0); GRAN # 6.13 (1.4-6.5); HEMATOCRIT 35.3 % (36.0-48.0); LYMPH # 0.8 (1.2-3.4); LYMPH % 10.8 % (22.0-35.0); MEAN CELL VOLUME 72.8 fl (80.0-105.0); MEAN CORPUSCULAR HEMOGLOBIN 21.9 pg (25.0-35.0); MEAN PLATELET VOLUME 10.2 fl (7.0-11.0); MONO # 0.5 (0.1-0.6); RED CELL DISTRIBUTION WIDTH 19.5 % (11.5-14.5); WHITE BLOOD COUNT 7.5 10^3/ul (4.5-11.0)
[2017-01-30] MEDS: Potassium Chloride 20 mEq ER Tab PO SCH (08:11)
--- NOTE | 2017-01-30 09:07 | PN ---
DATE: The patient is a 46 years female. LOCATION: She is in room 573, bed 1. SUBJECTIVE: The patient was admitted with pain in the lower pelvic area, left side, which was excruciating. She was evaluated in the Emergency Room, admitted for the pain and infection. The patient is placed on vancomycin and piperacillin. The patient is on medication for blood pressure. She has a large fibroid in the pelvis and abdomen, which is space occupying lesion in the abdomen causing some distress, but the patient says that she has been having this for years and it does not bother her to the point that she want anything done, but anyway she has been advised regarding this lesion to be removed by the steam bone press tender. PHYSICAL EXAMINATION: GENERAL: The patient is sitting up comfortably. VITAL SIGNS: The patient's vital signs this morning, pulse is 87, blood pressure 191/112. Blood pressure is markedly elevated. The patient has abnormal sinus rhythm, sinus tachycardia. LUNGS: Clear. ABDOMEN: Soft and there is evidence of a mass in the abdomen, which is large. Empirically, looks like she might have a mass that is over 10 pounds or more. MEDICATIONS: Her medications are significant, she is on clonidine 0.1 mg p.r.n. for blood pressure range noted. The patient is on Dilaudid for pain, which she does not require right now. The patient is on Diovan 320 mg daily. The patient is on Flagyl 500 mg q. 8 hours. She was given Venofer. The patient is getting metoprolol 50 mg daily, amlodipine 5 mg daily. ASSESSMENT AND PLAN: The patient's blood pressure has to be monitored very closely. We will increase the patient's amlodipine to 10 mg and put on hydralazine, which is Apresoline 10 mg q. 6 hours for diastolic blood pressure over 80. The patient needs close monitoring of blood pressure at this time. Clinically, the patient seemed to be stable, but we will have to keep as mentioned a close eye on the blood pressure. Fanny Verduzco MD
[2017-01-30] MEDS: Vancomycin 1gm in NS 250ml 1 GM/250 ML BAG IVPB SCH (12:58)
--- NOTE | 2017-01-30 14:05 | PN ---
DATE: 01/30/2017 SUBJECTIVE: The patient is lying in bed. She states that her thigh pain is much improved and has resolved. She denies any abdominal pain. She was seen by map plotter, Dr. Braxton, who has recommended elective total abdominal hysterectomy. The patient denies any abdominal pain, nausea, or vomiting. PHYSICAL EXAMINATION: VITAL SIGNS: Reveal temperature of 98.3, blood pressure of 170/110, and heart rate of 90. HEENT: Reveals sclerae to be white. Conjunctivae are pink. NECK: Supple. CHEST: Reveal lungs to be clear. CARDIOVASCULAR: Heart exam reveals regular rate and rhythm. GASTROINTESTINAL: Abdomen demonstrates a large firm mass encompassing the entire abdomen and pelvis. EXTREMITIES: Show no edema. LABORATORY DATA: Revealed white blood cell count of 7.5 and hemoglobin of 10.6. Chemistries revealed potassium of 3.5. Of note, the patient had positive blood cultures for Staph aureus as well as coag-negative Staph. MEDICATIONS: Her medications currently include hydralazine 10 mg q. 4 hors. p.r.n. for hypertension, clonidine 0.1 mg p.o. p.r.n. for hypertension, Diovan 325 mg once a day, Flagyl 500 mg p.o. q. 8 hours, Venofer 200 mg IV daily, potassium chloride 20 mg once a day, metoprolol 50 mg once a day, Norvasc 10 mg once a day, pantoprazole 40 mg p.o. twice a day, and acetaminophen 325 mg p.r.n. fever, tramadol 50 mg q. 8 hours., vancomycin 1 g IV q. 12 hours., and Zosyn 3.3 75 mg IV q. 6 hours. IMPRESSION: 1. Anemia most likely secondary to chronic menstrual blood loss. 2. A large uterine fibroid encompassing her entire pelvis and abdomen. 3. Thigh pain resolved. 4. Staphylococcus aureus sepsis, etiology unclear. RECOMMENDATIONS 1. Continue iron replacement. 2. Continue IV antibiotics as per Infectious Diseases. 3. Elective total abdominal hysterectomy. Alec Donald MD cc:
--- NOTE | 2017-01-30 16:19 | CP.PCM.PN ---
Subjective - Date & Time of Evaluation Date of Evaluation: 01/29/17 Time of Evaluation: 18:30 - Subjective Subjective: Thigh pain improving, ambulated around room Objective - Vital Signs/Intake and Output Vital Signs (last 24 hours): Temp Pulse Resp BP Pulse Ox 98.3 F 90 20 170/110 H 94 L 01/30/17 08:00 01/30/17 10:58 01/30/17 08:00 01/30/17 10:58 01/30/17 08:00 Intake and Output: 01/30/17 01/30/17 06:59 18:59 Intake Total 800 Balance 800 - Medications Medications: Current Medications Acetaminophen (Tylenol 325mg Tab) 650 mg PO Q6H PRN PRN Reason: FOR TEMP>=99.5F Acetaminophen (Tylenol 650 Mg Supp) 650 mg RC Q4H PRN PRN Reason: FOR TEMP>=99.5F Amlodipine Besylate (Norvasc) 10 mg PO DAILY [facility] Last Admin: 01/30/17 10:50 Dose: 10 mg Clonidine HCl (Catapres) 0.1 mg PO PRN PRN PRN Reason: Diastolic blood pressure Last Admin: 01/30/17 05:55 Dose: 0.1 mg Hydralazine HCl (Apresoline) 10 mg PO Q4H PRN PRN Reason: Diastolic blood pressure Last Admin: 01/30/17 14:41 Dose: 10 mg Hydromorphone HCl (Dilaudid) 0.5 mg IVP Q4H PRN PRN Reason: Pain, moderate (4-7) Piperacillin Sod/Tazobactam Sod (Zosyn 3.375 In Ns 100ml) 100 mls @ 200 mls/hr IVPB Q6 [facility] PRN Reason: Protocol Stop: 02/02/17 18:01 Last Admin: 01/30/17 14:42 Dose: 200 mls/hr Iron Sucrose 200 mg/ Sodium (Chloride) 110 mls @ 110 mls/hr IVPB DAILY [facility] Stop: 02/01/17 22:01 Last Admin: 01/30/17 11:00 Dose: 110 mls/hr Sodium Chloride (Sodium Chloride 0.9%) 1,000 mls @ 60 mls/hr IV .[id number] [facility] Last Admin: 01/27/17 09:12 Dose: 60 mls/hr Vancomycin HCl (Vancomycin 1gm) 1 gm in 250 mls @ 167 mls/hr IVPB Q12H [facility] PRN Reason: Protocol Last Admin: 01/30/17 12:58 Dose: 167 mls/hr Metoprolol Tartrate (Lopressor) 50 mg PO DAILY [facility] Last Admin: 01/30/17 10:50 Dose: 50 mg Metronidazole (Flagyl) 500 mg PO Q8 [facility] Last Admin: 01/30/17 14:40 Dose: 500 mg Pantoprazole Sodium (Protonix Ec Tab) 40 mg PO 0600,1600 [facility] Last Admin: 01/30/17 05:35 Dose: 40 mg Potassium Chloride (K-Dur 20 Meq Er Tab) 20 meq PO BRK [facility] Last Admin: 01/30/17 08:11 Dose: 20 meq Tramadol HCl (Ultram) 50 mg PO Q8 [facility] Last Admin: 01/30/17 14:40 Dose: 50 mg Valsartan (Diovan) 320 mg PO DAILY [facility] Last Admin: 01/30/17 11:00 Dose: 320 mg - Labs Labs: 01/30/17 07:00 01/30/17 07:00 PT 13.9 SECONDS (9.4-12.5) H 01/26/17 15:00 INR 1.27 (0.93-1.08) H 01/26/17 15:00 APTT 30.2 Seconds (25.1-36.5) 01/27/17 18:00 - Head Exam Head Exam: ATRAUMATIC - Eye Exam Eye Exam: Normal appearance - ENT Exam ENT Exam: Mucous Membranes Dry - Respiratory Exam Respiratory Exam: NORMAL BREATHING PATTERN - Cardiovascular Exam Cardiovascular Exam: +S1, +S2 - GI/Abdominal Exam GI & Abdominal Exam: Normal Bowel Sounds - Extremities Exam Extremities Exam: Normal Inspection Assessment and Plan (1) Anemia Assessment & Plan: iron deficiency; uterine fibroids noted s/p PRBC transfusion s/p Venofer Status: Acute (2) Splenic lesion Assessment & Plan: for MRI evaluation Status: Acute (3) Cancer antigen 125 (CA 125) elevation Assessment & Plan: 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
[2017-01-30] MEDS ORDERED: Potassium Chloride 20 mEq ER Tab PO STA (17:21)
--- NOTE | 2017-01-30 18:13 | CP.PCM.PN ---
Subjective - Date & Time of Evaluation Date of Evaluation: 01/29/17 Time of Evaluation: 12:15 - Subjective Subjective: Comfortable, less pain in the pelvic area, no dysuria currently, no fevers. Objective - Vital Signs/Intake and Output Vital Signs (last 24 hours): Temp Pulse Resp BP Pulse Ox 98.7 F 91 H 20 168/98 H 98 01/29/17 06:00 01/29/17 06:00 01/29/17 06:00 01/29/17 06:51 01/29/17 06:00 Intake and Output: 01/29/17 01/29/17 06:59 18:59 Intake Total 680 Balance 680 - Medications Medications: Current Medications Acetaminophen (Tylenol 325mg Tab) 650 mg PO Q6H PRN PRN Reason: FOR TEMP>=99.5F Acetaminophen (Tylenol 650 Mg Supp) 650 mg RC Q4H PRN PRN Reason: FOR TEMP>=99.5F Hydralazine HCl (Apresoline) 10 mg IVP Q6 PRN PRN Reason: FOR SBP>=170&/ORDBP>=100 [facility] Last Admin: 01/29/17 05:28 Dose: 10 mg Hydromorphone HCl (Dilaudid) 0.5 mg IVP Q4H PRN PRN Reason: Pain, moderate (4-7) Piperacillin Sod/Tazobactam Sod (Zosyn 3.375 In Ns 100ml) 100 mls @ 200 mls/hr IVPB Q6 [facility] PRN Reason: Protocol Stop: 02/02/17 18:01 Last Admin: 01/29/17 05:21 Dose: 200 mls/hr Iron Sucrose 200 mg/ Sodium (Chloride) 110 mls @ 110 mls/hr IVPB DAILY [facility] Stop: 02/01/17 22:01 Last Admin: 01/29/17 09:27 Dose: 110 mls/hr Sodium Chloride (Sodium Chloride 0.9%) 1,000 mls @ 60 mls/hr IV .[id number] [facility] Last Admin: 01/27/17 09:12 Dose: 60 mls/hr Vancomycin HCl (Vancomycin 1gm) 1 gm in 250 mls @ 167 mls/hr IVPB Q12H [facility] PRN Reason: Protocol Last Admin: 01/28/17 22:02 Dose: 167 mls/hr Losartan Potassium (Cozaar) 100 mg PO DAILY [facility] Last Admin: 01/29/17 09:17 Dose: Not Given Metoprolol Tartrate (Lopressor) 50 mg PO DAILY [facility] Last Admin: 01/29/17 09:18 Dose: Not Given Metronidazole (Flagyl) 500 mg PO Q8 [facility] Last Admin: 01/29/17 05:26 Dose: 500 mg Pantoprazole Sodium (Protonix Ec Tab) 40 mg PO 0600,1600 [facility] Last Admin: 01/29/17 06:52 Dose: Not Given Potassium Chloride (K-Dur 20 Meq Er Tab) 20 meq PO BRK [facility] Last Admin: 01/29/17 08:39 Dose: 20 meq Tramadol HCl (Ultram) 50 mg PO Q8 [facility] Last Admin: 01/29/17 05:27 Dose: 50 mg - Labs Labs: 01/29/17 07:25 01/29/17 07:25 PT 13.9 SECONDS (9.4-12.5) H 01/26/17 15:00 INR 1.27 (0.93-1.08) H 01/26/17 15:00 APTT 30.2 Seconds (25.1-36.5) 01/27/17 18:00 - Constitutional Appears: Non-toxic - Head Exam Head Exam: NORMAL INSPECTION - ENT Exam ENT Exam: Mucous Membranes Moist - Neck Exam Neck Exam: absent: Meningismus - Respiratory Exam Respiratory Exam: Decreased Breath Sounds - Cardiovascular Exam Cardiovascular Exam: +S1, +S2 - GI/Abdominal Exam GI & Abdominal Exam: Soft. absent: Tenderness Assessment and Plan - Assessment and Plan (Free Text) Plan: Assessment Sepsis due to gram positive cocci in chains bacteremia, source to be determined , R/O intra-abdominal infection R/O UTI (since there is group B strep growing in the urine splenic lesion, etiology to be determined HTN history of uterine fibroids S/P Plan will change Vancomycin, Zosyn to Rocephin pending identification and sensitivities of the bacteria in the blood; repeat blood cx are negative urine cx is growing Group B Strep; 2D echo does not show vegetations; follow up MRI of the pelvis/abdomen will continue to monitor clinically HIV test is negative 01/2017
[2017-01-31] MEDS: Pantoprazole 40 mg EC Tab PO SCH ×2 (05:37→07:32)
[2017-01-31 07:41] LABS: BASO # 0.03 K/mm3 (0.0-2.0); BASO % 0.4 % (0.0-3.0); EOS # 0.1 (0.0-0.7); EOS % 1.2 % (1.5-5.0); GRAN # 6.68 (1.4-6.5); HEMATOCRIT 36.5 % (36.0-48.0); LYMPH # 0.9 (1.2-3.4); LYMPH % 11.3 % (22.0-35.0); MEAN CELL VOLUME 73.6 fl (80.0-105.0); MEAN CORPUSCULAR HEMOGLOBIN 21.8 pg (25.0-35.0); MEAN CORPUSCULAR HGB CONC 29.6 g/dl (31.0-37.0); MONO # 0.5 (0.1-0.6); MONO % 6.1 % (1.0-6.0); RED CELL DISTRIBUTION WIDTH 20.6 % (11.5-14.5); WHITE BLOOD COUNT 8.2 10^3/ul (4.5-11.0)
[2017-01-31 07:42] VITALS: RESP 20
[2017-01-31 08:06] LABS: ALB/GLOB RATIO 1.1 (1.1-1.8); ALKALINE PHOSPHATASE 68 U/L (38-126); ALT/SGPT 20 U/L (7-56); AST/SGOT 30 U/L (14-36); BILIRUBIN,DIRECT 0.3 mg/dL (0.0-0.4); BILIRUBIN,TOTAL 0.3 mg/dL (0.2-1.3); BLOOD UREA NITROGEN 9 mg/dL (7-21); CALCIUM 9.2 mg/dL (8.4-10.5); CARBON DIOXIDE 27 mmol/L (21-33); CHLORIDE 101 mmol/L (98-107); GFR AFRICAN-AMERICAN > 60; GLUCOSE,RANDOM 93 mg/dL (70-110); MAGNESIUM 2.1 mg/dL (1.7-2.2); POTASSIUM 3.7 mmol/L (3.6-5.0); SODIUM 137 mmol/L (132-148); TOTAL PROTEIN 7.3 g/dL (5.8-8.3)
--- NOTE | 2017-01-31 08:38 | CP.PCM.PN ---
Subjective - Date & Time of Evaluation Date of Evaluation: 01/31/17 Time of Evaluation: 08:37 - Subjective Subjective: Pt awake, alert. Feels much better. Ambulating without pain. Afebrile ambulating with normal gait pattern no pain with AROM b/l hips thighs soft, NT NVI distally Ortho stable WBAT, activities as tolerated f/u as outpatient Objective - Vital Signs/Intake and Output Vital Signs (last 24 hours): Temp Pulse Resp BP Pulse Ox 98.5 F 86 20 158/80 H 95 01/31/17 07:30 01/31/17 07:30 01/31/17 07:30 01/31/17 07:30 01/31/17 07:30 Intake and Output: 01/31/17 01/31/17 06:59 18:59 Intake Total 960 Balance 960 - Medications Medications: Current Medications Acetaminophen (Tylenol 325mg Tab) 650 mg PO Q6H PRN PRN Reason: FOR TEMP>=99.5F Acetaminophen (Tylenol 650 Mg Supp) 650 mg RC Q4H PRN PRN Reason: FOR TEMP>=99.5F Amlodipine Besylate (Norvasc) 10 mg PO DAILY [facility] Last Admin: 01/30/17 10:50 Dose: 10 mg Clonidine HCl (Catapres) 0.1 mg PO PRN PRN PRN Reason: Diastolic blood pressure Last Admin: 01/30/17 16:25 Dose: 0.1 mg Hydralazine HCl (Apresoline) 10 mg PO Q4H PRN PRN Reason: Diastolic blood pressure Last Admin: 01/31/17 04:53 Dose: 10 mg Hydromorphone HCl (Dilaudid) 0.5 mg IVP Q4H PRN PRN Reason: Pain, moderate (4-7) Iron Sucrose 200 mg/ Sodium (Chloride) 110 mls @ 110 mls/hr IVPB DAILY [facility] Stop: 02/01/17 22:01 Last Admin: 01/30/17 11:00 Dose: 110 mls/hr Ceftriaxone Sodium (Rocephin 1 Gram Ivpb (D5w)) 1 gm in 100 mls @ 100 mls/hr IVPB DAILY [facility] PRN Reason: Protocol Metoprolol Tartrate (Lopressor) 50 mg PO Q12H [facility] Last Admin: 01/31/17 05:39 Dose: 50 mg Metronidazole (Flagyl) 500 mg PO Q8 [facility] Last Admin: 01/31/17 07:31 Dose: Not Given Pantoprazole Sodium (Protonix Ec Tab) 40 mg PO 0600,1600 [facility] Last Admin: 01/31/17 07:32 Dose: Not Given Spironolactone (Aldactone) 25 mg PO BID [facility] Last Admin: 01/30/17 18:55 Dose: 25 mg Tramadol HCl (Ultram) 50 mg PO Q8 [facility] Last Admin: 01/31/17 05:34 Dose: 50 mg Valsartan (Diovan) 320 mg PO DAILY [facility] Last Admin: 01/30/17 11:00 Dose: 320 mg - Labs Labs: 01/31/17 07:00 01/31/17 07:00 PT 13.9 SECONDS (9.4-12.5) H 01/26/17 15:00 INR 1.27 (0.93-1.08) H 01/26/17 15:00 APTT 30.2 Seconds (25.1-36.5) 01/27/17 18:00
[2017-01-31] MEDS ORDERED: cefTRIAXone 1 gm 1 GM/100 ML BAG IVPB SCH (10:00)
--- NOTE | 2017-01-31 13:12 | US ---
PROCEDURE: Bilateral renal artery duplex ultrasound. CLINICAL HISTORY: Renal artery stenosis. Uncontrolled hypertension. Evaluate for renovascular hypertension. PHYSICIAN(S): Ye Bañuelos M.D. TECHNIQUE: Duplex sonography with color-flow Doppler was used to evaluate the visualized segments of the main renal arteries. The patient was evaluated in a fasting state. Imaging in a supine and decubitus position was performed. Limited evaluation of the arcuate waveforms and resistive indices were performed. FINDINGS: The exam is extremely limited by body habitus and bowel gas The kidneys are normal in size, shape, and location. The right kidney measures 10.4cm in length and the left kidney measures 11.5cm in length. No solid renal masses, abnormal calcifications, or hydronephrosis is seen. The main right renal artery is not well visualized.. The peak systolic velocity in the right main renal artery is 95 cm/sec. This is consistent with a 0 to 49% stenosis in the main right renal artery. The arcuate waveforms are normal. The resistive index is normal. The main left renal artery is not well visualized. The peak systolic velocity in the main left renal artery is 113cm/sec. This corresponds to a 0 to 49% stenosis in the main left renal artery. The arcuate waveforms and resistive indices are normal. IMPRESSION: 1. The main renal arteries are not adequately visualized. If clinical suspicion of renal artery stenosis is high, a CTA, MRA, or conventional arteriogram can be considered. 2. No sonographically significant stenosis is identified. 3. The kidneys are normal and symmetric in size. There are no solid renal masses, abnormal calcifications or hydronephrosis noted.
--- NOTE | 2017-01-31 15:17 | DS ---
FINAL PROGRESS NOTE & DISCHARGE SUMMARY DATE: 01/31/2017 LOCATION: The patient is seen in room 573, bed 1. SUBJECTIVE: The patient is sitting up in the chair today. The patient appears to be in no distress. Overnight nurse's notes were reviewed. The patient slept during the night. No adverse events documented. The patient was able to ambulate with any disturbances on a steady gait. The patient was seen by Dr. Portillo this morning. PHYSICAL EXAMINATION: VITAL SIGNS: T-max 98.5. Heart rate 86, 89, 88, blood pressure 150/92, 158/90, 172/106, 179/106, 163/105. Respirations 20, O2 sat 95%. HEENT: Head: Normocephalic, atraumatic. HEENT examination shows pinkish conjunctivae. Anicteric sclerae. No oropharyngeal lesion. NECK: No neck rigidity. CHEST: Kyphosis. LUNGS: Shows no rales, crackles or wheezing. CARDIOVASCULAR: S1, S2, regular rhythm. Questionable soft systolic murmur, right second intercostal space, left sternal border, left second intercostal space. ABDOMEN: Protuberant, tense abdomen. GENITALIA: Female. RECTAL: Deferred. EXTREMITIES: Shows no pitting edema, no calf tenderness, no Homans' sign. NEUROLOGIC: The patient is alert, awake, oriented x3. She is able to move upper and lower extremities without assistance. Gait examination is intact. The patient ambulated independently during my examination and also the patient had normal ambulation when the patient was seen by Dr. Portillo today without any pain, and the patient had normal gait pattern upon ambulating. VASCULAR: Palpable pulses. MUSCULOSKELETAL: Shows a body mass index of 31. DIAGNOSTICS: 01/31/2017, WBC 8.2, hemoglobin/hematocrit 10.8, 36, MCV 74, platelets 404. Granulocytes 81. Sodium 137, potassium is 3.7, chloride 101, CO2 is 27, anion gap 13, BUN 9, creatinine 0.7, GFR greater than 60, glucose 93, calcium 9.2, magnesium 2.1. LFTs are normal. Hepatitis A, B, C serologies negative. HIV and influenza negative. Urine culture, group B beta hemolytic Streptococcus and blood cultures are growing Streptococcus sanguis, sensitive to all the listed antibiotics. The patient received 2 units of PRBC. FINAL IMPRESSION AND PLAN & DISCHARGE DIAGNOSES: 1. Pelvic pain. 2. Markedly enlarged fibroid uterus. 3. Indeterminate splenic lesion. 4. Gait dysfunction (resolved). 5. Hypodense splenic lesion, indeterminate. 6. Markedly enlarged lobulated uterus with course calcification. 7. Abdominopelvic small amount of free fluid. 8. Soft tissue thickening around the umbilicus. 9. Dilated gonadal veins and compressed inferior vena cava filter. 10. Questionable diastolic and systolic uncontrolled hypertension. 11. Microcytic anemia. 12. Elevated erythrocyte sedimentation rate of 45. 13. Microcytic anemia, status post packed red blood cell transfusion x2. 14. Elevated D-dimer of greater than 1000. 15. Hypokalemia. 16. Elevated C-reactive protein of greater than 15. 17. Elevated CA-125 antigen of 40. 19. Iron deficiency microcytic anemia. 20. Proteinuria. 21. Group B beta hemolytic Streptococcal urinary tract infection. 22. Streptococcus sanguis bacteremia and sepsis. 23. Status post 2 units PRBC transfusion. 24. Concentric left ventricular hypertrophy with left ventricle ejection fraction of 63%. 25. Grade 3 reversible restrictive diastolic dysfunction. 26. Borderline dilated left atrium. 27. Thickened aortic valve with moderately sclerotic aortic valve with aortic sclerosis versus mild aortic stenosis. 28. Thickened mitral valve with mitral annular calcification and mild mitral regurgitation. 29. Thickened tricuspid valve and mild tricuspid regurgitation with right ventricular systolic pressure of 38 mmHg. 30. Trace pulmonic valve regurgitation. 31. Age indeterminate inferior infarct. 32. Age indeterminate anterior infarct as per EKG. 33. Iron deficiency microcytic anemia, status post PRBC transfusion and status post IV Venofer treatment. 34. Massive uterine fibroid. 35. Inability to do an MRI of the lumbar spine, MRI of the abdomen and pelvis. 36. Pelvic pain (resolved). 37. Markedly enlarged fibroid uterus with acute anemia. PLAN: At this time, the patient was seen by PRICING COORDINATOR. The patient was informed about her diagnosis. The patient was told about most likely the patient will require hysterectomy. The patient was advised followup with the PRICING COORDINATOR in the office immediately after discharge for Pap smear and endometrial biopsy and likely scheduling for surgery. The patient was explained all the details by the PRICING COORDINATOR. The patient was seen by Gastroenterology, Infectious Disease, Orthopedics, Nephrology and Neurology. The patient was seen by Nephrology, their recommendations were noted. Plan at this time, the patient is awaiting clearance by Infectious Disease regarding IV antibiotic duration. MEDICATIONS: The patient's current medications are Aldactone 25 mg twice a day, hydralazine 10 mg p.o. q. 4 hours p.r.n., clonidine 0.1 mg p.r.n. ordered by Dr. Ma, Dilaudid 0.5 mg IV q. 4 hours p.r.n., Diovan 320 mg daily, Flagyl 500 p.o. q. 8 h., Venofer 200 mg IV daily by Hematology. Lopressor increased to 50 mg twice a day, Norvasc 10 mg daily Protonix 40 mg daily Rocephin 1 g IV daily by Infectious Disease, Tylenol 650 q. 4 h. p.r.n., Ultram 50 mg p.o. q. 8 hours. Renal arterial Doppler results is pending. The patient has been ordered out of bed and JASS stockings. At present, the patient is awaiting clearance from Infectious Disease regarding duration of IV antibiotic. Once the patient's IV antibiotics is switched over to p.o., the patient will be cleared for discharge. The patient has been explained about the details of her medical condition, diagnosis, test results, recommendation. Outpatient followup was explained to the patient by me, Hematology/Oncology, Gastroenterology, Infectious Disease, Neurology and especially Gynecology and also Orthopedics and Nephrology. The patient was advised strict compliance with medications, diet and doctors followup at length. All questions concerned answered. PATIENT CLEARED FOR DISCHARGE by infectious disease. DISCHARGE MEDICATIONS PER UPDATED AMBULATORY ORDERS AND DISCHARGE INSTRUCTIONS REPEAT ECHOCARDIOGRAM OUTPATIENT. LEVAQUIN 750 MG DAILY X 14 DAYS, PER ID, CASE D/W Dictated and electronically signed, not read. Sundeep Conti MD MTDFredy
--- NOTE | 2017-01-31 15:51 | PN ---
DATE: 01/31/2017 SUBJECTIVE: The patient is sitting up in bed comfortable. She denies any abdominal pain, nausea, vomiting, rectal bleeding, or melena. PHYSICAL EXAMINATION: VITAL SIGNS: Reveal temperature of 98.5, blood pressure 152/92, and heart rate of 88. HEENT: Reveal sclerae to be white. Conjunctivae pink. NECK: Supple. CHEST: Reveal lungs to be clear. HEART: Reveals regular rate and rhythm. ABDOMEN: Soft. There is a large mass occupying the entire abdomen and pelvis. EXTREMITIES: Show no edema. LABORATORY DATA: Reveal hemoglobin of 10.8 and white blood cell count 8.2. Electrolytes are normal. IMPRESSION: 1. Anemia. 2. Large uterine fibroid with chronic uterine bleeding. 3. Staphylococcus aureus sepsis. RECOMMENDATIONS: 1. Continue iron replacement. 2. The patient is to have elective total hysterectomy. 3. Continue antibiotics as per Infectious Disease. Alec Donald MD
--- NOTE | 2017-01-31 16:15 | CP.PCM.PN ---
Subjective - Date & Time of Evaluation Date of Evaluation: 01/31/17 Time of Evaluation: 11:35 - Subjective Subjective: Comfortable, not in distress, afebrile. Feeling better, no abdominal pain, not in distress. States she needs to visit her dentist because some of her teeth need to be pulled out. Objective - Vital Signs/Intake and Output Vital Signs (last 24 hours): Temp Pulse Resp BP Pulse Ox 98.5 F 88 20 152/92 H 95 01/31/17 07:30 01/31/17 09:54 01/31/17 07:30 01/31/17 09:54 01/31/17 07:30 Intake and Output: 01/31/17 01/31/17 06:59 18:59 Intake Total 960 Balance 960 - Medications Medications: Current Medications Acetaminophen (Tylenol 325mg Tab) 650 mg PO Q6H PRN PRN Reason: FOR TEMP>=99.5F Acetaminophen (Tylenol 650 Mg Supp) 650 mg RC Q4H PRN PRN Reason: FOR TEMP>=99.5F Amlodipine Besylate (Norvasc) 10 mg PO DAILY [facility] Last Admin: 01/31/17 09:54 Dose: 10 mg Clonidine HCl (Catapres) 0.1 mg PO PRN PRN PRN Reason: Diastolic blood pressure Last Admin: 01/30/17 16:25 Dose: 0.1 mg Hydralazine HCl (Apresoline) 10 mg PO Q4H PRN PRN Reason: Diastolic blood pressure Last Admin: 01/31/17 09:54 Dose: 10 mg Hydromorphone HCl (Dilaudid) 0.5 mg IVP Q4H PRN PRN Reason: Pain, moderate (4-7) Iron Sucrose 200 mg/ Sodium (Chloride) 110 mls @ 110 mls/hr IVPB DAILY [facility] Stop: 02/01/17 22:01 Last Admin: 01/30/17 11:00 Dose: 110 mls/hr Ceftriaxone Sodium (Rocephin 1 Gram Ivpb (D5w)) 1 gm in 100 mls @ 100 mls/hr IVPB DAILY [facility] PRN Reason: Protocol Last Admin: 01/31/17 09:33 Dose: 100 mls/hr Metoprolol Tartrate (Lopressor) 50 mg PO Q12H [facility] Last Admin: 01/31/17 05:39 Dose: 50 mg Metronidazole (Flagyl) 500 mg PO Q8 [facility] Last Admin: 01/31/17 07:31 Dose: Not Given Pantoprazole Sodium (Protonix Ec Tab) 40 mg PO 0600,1600 [facility] Last Admin: 01/31/17 07:32 Dose: Not Given Spironolactone (Aldactone) 25 mg PO BID [facility] Last Admin: 01/31/17 09:31 Dose: 25 mg Tramadol HCl (Ultram) 50 mg PO Q8 [facility] Last Admin: 01/31/17 05:34 Dose: 50 mg Valsartan (Diovan) 320 mg PO DAILY [facility] Last Admin: 01/31/17 09:31 Dose: 320 mg - Labs Labs: 01/31/17 07:00 01/31/17 07:00 PT 13.9 SECONDS (9.4-12.5) H 01/26/17 15:00 INR 1.27 (0.93-1.08) H 01/26/17 15:00 APTT 30.2 Seconds (25.1-36.5) 01/27/17 18:00 - Constitutional Appears: Non-toxic - Head Exam Head Exam: NORMAL INSPECTION - ENT Exam ENT Exam: Mucous Membranes Moist - Neck Exam Neck Exam: absent: Meningismus - Respiratory Exam Respiratory Exam: Decreased Breath Sounds - Cardiovascular Exam Cardiovascular Exam: +S1, +S2 - GI/Abdominal Exam GI & Abdominal Exam: Soft. absent: Tenderness Assessment and Plan - Assessment and Plan (Free Text) Plan: Assessment Sepsis due to Strep sanguinis bacteremia, consider odontogenic; R/O UTI (since there is group B strep growing in the urine splenic lesion, etiology to be determined HTN history of uterine fibroids S/P Plan on Rocephin - can switch to PO Levaquin to complete 2 weeks of therapy; repeat blood cx are negative 2D echo does not show vegetations - recommend to repeat 2D echo as an outptient discussed with Dr. Conti HIV test is negative 01/2017
[2017-01-31 16:20] VITALS: BP 188/90; PULSE 89; TEMP 98.6; O2SAT 100
--- NOTE | 2017-02-01 00:13 | CARD ---
APPROVED REPORT EKG Measurement Heart [id number] ID [id number] <Conclusion> Normal sinus rhythm Possible Anterolateral infarct, age undetermined Abnormal ECG
--- NOTE | 2017-02-01 02:22 | PN ---
DATE: 01/31/2017 SUBJECTIVE: The patient is seen, sitting in chair. She is awake. She is alert. She is comfortable. She denies any pain. She denies any shortness of breath. She denies any chest tightness at present. PHYSICAL EXAMINATION: GENERAL: Young woman sitting in chair. VITAL SIGNS: Blood pressure 152/92, heart rate 88, respiratory rate 20, temperature 98.5. HEENT: Normocephalic, atraumatic. NECK: Supple, no JVD. LUNGS: Bilateral equal air entry, no rales. CARDIAC: S1 and S2, regular rate and rhythm, no murmur, no rub. ABDOMEN: Soft, nondistended, nontender, bowel sounds present. EXTREMITIES: No lower extremity edema. INTAKE AND OUTPUT: Not charted. LABORATORY DATA: WBC 8, hemoglobin 10.8, hematocrit 37, platelets 404. Sodium 137, potassium 3.7, chloride 101, CO2 is 27, BUN 9, creatinine 0.7, glucose 93, calcium 9.2, magnesium 2.1. Urine culture, beta-hemolytic Strep. Blood culture, Streptococcus sanguinis x1. Renal arterial Doppler, no sonographic evidence of significant stenosis. Kidney is normal in size and symmetric. CURRENT MEDICATIONS: Aldactone 25 b.i.d.; Catapres 0.1 p.r.n.; Dilaudid; Diovan 320; Flagyl; Lopressor 50 p.o. q. 12; amlodipine 10; Protonix 40; Rocephin; and Tylenol. ASSESSMENT: 1. Severe hypertension, status post hypertensive emergency. 2. Anemia. 3. Right groin pain. PLAN: 1. Long discussion with the patient, we will need to fine-tune antihypertensives as outpatient. 2. Okay to discharge on Diovan 320, amlodipine 10, Lopressor 50 b.i.d. 3. Close outpatient followup. Ansley Vyas MD
--- NOTE | 2017-02-01 08:43 | HP ---
ADDENDUM The patient was seen in bed #16 in the Emergency Room with the biomedical field service engineer on-call. The patient was seen and evaluated in the Emergency Room with the biomedical field service engineer, Aliza Up. The patient was seen and examined in the Emergency Room. The patient's vital signs, diagnostic data all reviewed. For further details of history, physical examination, please refer to the history, physical examination done by the biomedical field service engineer. The patient is a 46-year-old female, who presented to the [facility] Emergency Room on 01/26/2017 for complaints of difficulty ambulating for the last 4-5 days. The patient also complained of lower abdominal pain. The patient was seen in the Emergency Room on Tuesday, which was 3 days ago and came back to the Emergency Room today by [facility]. The patient states that she has difficulty walking and pelvic and groin pain. The patient was seen in the Emergency Room by the ER physician, Dr. Swenson. The patient states that she has difficulty walking and the patient is complaining of bilateral groin and upper leg pain. The patient denies any trauma or fall. The patient as mentioned, the patient was seen and examined in the Emergency Room, room #16 with the biomedical field service engineer. The patient's vital signs, diagnostic data was reviewed. ADMISSION IMPRESSION AND PLAN: 1. Bilateral inguinal and upper thigh pain, etiology undetermined. 2. Low grade fever of 100.7. 3. Tachycardia. 4. Questionable systemic inflammatory response syndrome. 5. History of hypertension. 6. History of nonsteroidal anti-inflammatory use. 7. Microcytic anemia with a hemoglobin of 8.5. 8. Granulocytosis. 9. Elevated erythrocyte sedimentation rate of 45. 10. Elevated D-dimer of greater than 1000, etiology undetermined. 11. Hypokalemia. 12. Elevated BNP of greater than 500, etiology undetermined. 13. Iron deficiency anemia with decreased iron, decreased iron saturation and decreased ferritin level. 14. Elevated C-reactive protein of greater than 15. 15. Proteinuria and bacteriuria. 16. AB+ blood type. 17. Mild pulmonary venous congestion, etiology undetermined with moderate cardiomegaly and prominent pulmonary vasculature, etiology undetermined. 18. Elevated D-dimer of greater than 1000. 19. Trace right lateral pleural effusion. 20. Moderate cardiomegaly. 21. Indeterminate hypodense splenic lesion, etiology undetermined. 22. Right renal too small to characterize lesion. 23. Markedly enlarged lobulated uterus with course calcification 28 x 19 x 24 cm. 24. Abdominopelvic free fluid. 25. Umbilical hernia. 26. Dilated gonadal veins and compressed inferior vena cava filter. 27. Hypertensive cardiovascular disease with age indeterminate anterior infarct. 28. Bilateral upper extremity and groin pain, probably secondary to markedly enlarged uterine fibroid. 29. Questionable systemic inflammatory response syndrome. 30. History of fibroid uterus and hypertension. 31. Social alcohol use. 32. Bilateral upper extremity and upper thigh pain, etiology undetermined. 33. History of anemia and possibly iron deficiency anemia. 34. History of menorrhagia. 35. Microcytic anemia with hypoproliferative erythroid response by reticulocyte count. PLAN: At this time, the patient is to be admitted to [facility]. The patient has been ordered serial labs. The patient has been ordered type and screen. The patient has been ordered monitoring of the patient's laboratory data. The patient has been ordered repeat CMP, LFTs. The patient has been ordered iron studies. The patient has been ordered lipid panel. The patient has been ordered serial labs. The patient is ordered blood and urine cultures. Hepatitis A, B, C serologies, HIV influenza titers ordered. The patient has been ordered urine and blood cultures. The patient has been ordered MRI of the abdomen, MRI of the pelvis, MRI of the lumbar spine for evaluation of the patient's symptoms. Echocardiogram: Repeat EKG ordered. The patient has been requested Hematology/Oncology, Neurology, Gastroenterology, Infectious Disease, Orthopedics and HAND HEEL SEAT FITTER consultation and evaluation has been requested. The patient has been updated about her condition, diagnosis, treatment plan, management plan, need for hospitalization, need for further management and was discussed and explained to the patient at length. The patient was seen in the Emergency Room, in room #16. In the Emergency Room, the patient is awaiting for a bed. The patient's further management will be dependent upon the patient's clinical condition, hemodynamic status and as per the patient response to therapeutic intervention, as per the patient's diagnostic test results and as per recommendation by all the physicians involved in the care of the patient. ADDENDUM TO THE IMPRESSION AND PLAN: 1. Hyperprolactinemia. Dictated and electronically signed, not read. Signing off, Sundeep Conti MD [facility] # [id number]
== END 2017-01-31 18:04 | disposition home or self-care (01) | DRG 872 ==
LOC: ED 13:52 → ERH 19:49 → 3RSO 22:17 → 5RSO 01-29 12:27
PROVIDERS: ADMIT Internal Medicine; ATTEND Internal Medicine
DX: A40.1 Sepsis due to streptococcus, group B (principal); D73.89 Other diseases of spleen; I11.9 Hypertensive heart disease without heart failure; E22.1 Hyperprolactinemia; N39.0 Urinary tract infection, site not specified; D25.9 Leiomyoma of uterus, unspecified; D50.0 Iron deficiency anemia secondary to blood loss (chronic); E87.6 Hypokalemia; F40.240 Claustrophobia; I08.1 Rheumatic disorders of both mitral and tricuspid valves; K42.9 Umbilical hernia without obstruction or gangrene; N92.0 Excessive and frequent menstruation with regular cycle; R79.1 Abnormal coagulation profile; Z79.899 Other long term (current) drug therapy; Z82.49 Family history of ischemic heart disease and other diseases of the circulatory system; Z87.891 Personal history of nicotine dependence; Z90.710 Acquired absence of both cervix and uterus; Z91.19 Patient's noncompliance with other medical treatment and regimen; Z82.3 Family history of stroke; R97.0 Elevated carcinoembryonic antigen [CEA]